=== PATIENT | female | born 1985 | race Caucasian/White ===

== ENCOUNTER 2018-11-22 09:41 | Outpatient (CLI) | payer OTHER ==
[~2018-11-22] VITALS: Ht 154.9 cm; Wt 61.7 kg
[~2018-11-22 09:41] MED LIST: AMOX250S6 PO; CALC-250 PO; Flexeril; MULT-383 PO; NAPR-243 PO; NITR100C3 PO; PLAQUENIL; SULF1TAB35 PO
[2018-11-22 09:45] VITALS: BP 111/66
== END 2018-11-22 10:55 | disposition home or self-care (01) ==
LOC: SDC 09:41
PROVIDERS: ATTEND Internal Medicine Hematology & Oncology
DX: C53.8 Malignant neoplasm of overlapping sites of cervix uteri (principal)
CPT/HCPCS: 36569; 76937

== ENCOUNTER 2018-11-26 19:31 | Emergency (ER) | payer OTHER ==
[~2018-11-26] VITALS: Ht 154.9 cm; Wt 63.0 kg
[2018-11-26] MEDS ORDERED: KETOROLAC 30 MG/ML VIAL IVP ONE (20:15)
--- NOTE | 2018-11-26 20:16 | ED Upper Extremity ---
General Chief Complaint: Upper Extremity Stated Complaint: PAIN FROM PICLINE Source: patient Exam Limitations: no limitations History of Present Illness Date Seen by Provider: Nov 26, 2018 Time Seen by Provider: 20:16 Initial Comments To ER with pain to the left arm, a full sensation to her neck and chest. This began Wednesday morning upon awakening. She also reports ringing in her ears. She denies fevers. She had a PICC line placed on 11/22/18 in preparation for chemotherapy for cervical cancer. She follows with Dr. jansen. She is scheduled to start chemotherapy this upcoming week. The PICC line has not yet been used. Onset: other Severity: moderate Pain/Injury Location: left arm Modifying Factors: Worse With Movement Allergies and Home Medications Allergies Coded Allergies: codeine (Verified Allergy, Unknown, 03/19/06) Home Medications Calcium Carbonate/Vitamin D3 1 Each Tablet, 1 EACH PO WEEKLY, (Reported) Cephalexin 500 Mg Capsule, 500 MG PO TID Prescribed by: RANDY RUIZ on 11/26/182048 Multivitamins W-Iron 1 Each Tab.chew, 1 EACH PO DAILY, (Reported) Sulfamethoxazole/Trimethoprim 1 Each Tablet, 1 EACH PO BID Prescribed by: MICKEY MUNIZ on 03/30/13 1439 [Flexeril] , 10 MG twice a day Prescribed by: MICKEY MUNIZ on 09/06/16 1630 Patient Home Medication List Home Medication List Reviewed: Yes Review of Systems Constitutional: see HPI; No chills EENTM: see HPI Respiratory: no symptoms reported Cardiovascular: no symptoms reported Genitourinary: no symptoms reported Musculoskeletal: see HPI Skin: see HPI Psychiatric/Neurological: No Symptoms Reported Past Puyqiyp-Cbxytl-Sauwzq Hx Patient Social History Type Used: Cigarettes Recent Foreign Travel: No Contact w/Someone Who Travel: No Recent Hopitalizations: Yes () Seasonal Allergies Seasonal Allergies: No Past Medical History Reproductive Disorders: No 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 0.2oz. [id number]; BMI Method:Stated General Appearance: WD/WN, no apparent distress HEENT: PERRL/EOMI, normal ENT inspection Neck: non-tender, full range of motion Respiratory: no respiratory distress, no accessory muscle use Back: other (there is ecchymosis and tenderness to palpation just proximal to the insertion site of the left upper extremity PICC line. There is no erythema of the upper extremity anywhere, including immediately around the insertion site. I suspect a hematoma in the soft tissues as the cause of her pain.) Shoulder: normal inspection, non-tender Elbow/Forearm: normal inspection, non-tender Wrist: Yes normal inspection, Yes non-tender Hand: normal inspection, non-tender Neurologic/Psychiatric: alert, normal mood/affect, oriented x 3 Skin: normal color, warm/dry Progress/Results/Core Measures Results/Orders My Orders Orders - RANDY RUIZ APRN Us Venous Upper Ext Lt (11/26/18 19:39) Ketorolac Injection (Toradol Injection) (11/26/18 20:15) Cbc With Automated Diff (11/26/18 20:15) Basic Metabolic Panel (11/26/18 20:15) Chest Pa/Lat (2 View) (11/26/18 20:20) Medications Given in ED Current Medications Medications Dose Ordered Sig/Kelly Route Start Time Stop Time Status Last Admin Dose Admin Ketorolac Tromethamine 15 mg ONCE ONCE IVP 11/26/18 20:15 11/26/18 20:16 DC 11/26/18 20:49 15 MG Vital Signs/I&O 11/26/18 19:35 Temp 97.9 Pulse 86 Resp 16 B/P (MAP) 98/72 (81) Pulse Ox 98 O2 Delivery Room Air Diagnostic Imaging Diagonstic Imaging: CT, Ultrasound Comments NAME: NICKOLAS LEDESMA [facility] REC#: [id number] PT STATUS: REG ER : 1985 PHYSICIAN: RANDY RUIZ APRN ADMIT DATE: 11/26/18/ER Draft Date of Exam:11/26/18 US VENOUS UPPER EXT LT PROCEDURE: US venous upper extremity, left. TECHNIQUE: Multiple realtime grayscale images were obtained of left upper extremity in various projections. Additional spectral analysis and color Doppler duplex images were also obtained. INDICATION: Venous clot. FINDINGS: There is superficial venous clot over about a 12 cm segment of the cephalic vein peripheral to an indwelling vascular catheter. There is also a segmental clot in the basilic vein. The jugular, subclavian, axillary and brachial veins are all patent. There is no evidence for deep vein thrombus. IMPRESSION: There is a superficial venous clot peripheral to the course of the PICC line involving the cephalic vein as well as some clot within the lower basilic vein. Deep venous system, however, is patent. Dictated on workstation # [id number] Dict: 11/26/182036 Trans: 11/26/182041 [facility] [id number] Interpreted by: LINO SALDIVAR Electronically signed by: Departure Impression Primary Impression: Superficial thrombophlebitis Qualified Codes: I80.8 - Phlebitis and thrombophlebitis of other sites Disposition: HOME, SELF-CARE Condition: Stable Departure-Patient Inst. Decision time for Depature: 20:19 Referrals: JER PAREDES DO (PCP/Family) Primary Care Physician Patient Instructions: PHLEBITIS-SUPERFICIAL Add. Discharge Instructions: 1. Warm compresses to the area 2. Take an NSAID such as aspirin naproxen or ibuprofen for pain control. Follow- up with Dr. Santos next week. All discharge instructions reviewed with patient and /or family. Voiced understanding. Scripts Cephalexin (Keflex) 500 Mg Capsule 500 MG PO TID, #21 CAP Prov: RANDY RUIZ APRN 11/26/18 RANDY RUIZ APRN Nov 26, 2018 20:16
--- NOTE | 2018-11-26 20:41 | Diagnostic Imaging Report ---
PROCEDURE: US venous upper extremity, left. TECHNIQUE: Multiple realtime grayscale images were obtained of left upper extremity in various projections. Additional spectral analysis and color Doppler duplex images were also obtained. INDICATION: Venous clot. FINDINGS: There is superficial venous clot over about a 12 cm segment of the cephalic vein peripheral to an indwelling vascular catheter. There is also a segmental clot in the basilic vein. The jugular, subclavian, axillary and brachial veins are all patent. There is no evidence for deep vein thrombus. IMPRESSION: There is a superficial venous clot peripheral to the course of the PICC line involving the cephalic vein as well as some clot within the lower basilic vein. Deep venous system, however, is patent. Dictated by: Dictated on workstation # [id number]
[2018-11-26] MEDS ORDERED: CEPH-507 PO (20:49)
--- NOTE | 2018-11-26 20:53 | Diagnostic Imaging Report ---
INDICATION: PICC line FINDINGS: Left PICC catheter tip is at the SVC. The lungs are clear. There is no failure, effusion or pneumothorax. Hilar and mediastinal contours normal. No infiltrate or mass apparent. No free air beneath the diaphragms. No bony abnormality. IMPRESSION: PICC line in good position. The study is otherwise normal. Dictated by: Dictated on workstation # [id number]
[2018-11-26 20:58] LABS: BASOPHILS % (AUTO) 0 % (0-10); EOSINOPHILS # (AUTO) 0.1 10^3/uL (0.0-0.3); EOSINOPHILS % (AUTO) 3 % (0-10); HEMATOCRIT 33 % (35-52); HEMOGLOBIN 11.2 G/DL (11.5-16.0); LYMPHOCYTES # (AUTO) 0.3 X 10^3 (1.0-4.0); LYMPHOCYTES % (AUTO) 7 % (12-44); MEAN CORPUSCULAR HEMOGLOBIN 30 PG (25-34); MEAN CORPUSCULAR HGB CONC 34 G/DL (32-36); MEAN CORPUSCULAR VOLUME 90 FL (80-99); MEAN PLATELET VOLUME 10.6 FL (7.4-10.4); MONOCYTES # (AUTO) 0.3 X 10^3 (0.0-1.0); MONOCYTES % (AUTO) 6 % (0-12); NEUTROPHILS # (AUTO) 3.8 X 10^3 (1.8-7.8); NEUTROPHILS % (AUTO) 85 % (42-75); PLATELET COUNT 143 10^3/uL (130-400); RED CELL DISTRIBUTION WIDTH 12.1 % (10.0-14.5); WHITE BLOOD COUNT 4.5 10^3/uL (4.3-11.0)
[2018-11-26 21:15] LABS: BUN/CREATININE RATIO 15; CALCIUM 9.2 MG/DL (8.5-10.1); CARBON DIOXIDE 26 MMOL/L (21-32); CHLORIDE 101 MMOL/L (98-107); CREATININE SERUM 0.68 MG/DL (0.60-1.30); GFR ESTIMATED > 60; GLUCOSE 95 MG/DL (70-105); POTASSIUM 3.7 MMOL/L (3.6-5.0); SODIUM 137 MMOL/L (135-145)
[2018-11-26 21:30] LABS: BAND NEUTROPHILS 2 %; EOSINOPHILS % (MANUAL) 3 %; LYMPHOCYTES % (MANUAL) 4 %; MONOCYTES % (MANUAL) 11 %; NEUTROPHILS % (MANUAL) 80 %; RBC MORPH NORMAL
[2018-11-26 21:38] VITALS: BP 98/70
[2018-11-26] MEDS ORDERED: CEPHALEXIN 250 MG (KEFLEX) CAP PO ONE (21:45)
--- OUTSIDE RECORDS SUMMARY | 2018-11-27 14:02 | XMS REPORT | Clinical Summary ---
Author Author [facility] Organization [facility] Address Unknown Phone Unavailable Care Team Providers Care Instrumentation And Control Technician Name Role Phone Demetrius Villalobos MD Unavailable Ja Villegas MD Unavailable Mike Barth DO PCP Kezia Hopkins MD Unavailable Unavailable Source Comments Some departments are not documenting in the electronic medical record. If you do not see the information that you expected, contact Release of Information in the Health Information Management department at [phone] for further assistance in locating additional records.[facility] Allergies Comments Active Allergy Reactions Severity Noted Date Codeine UNKNOWN 02/07/2013 Medications End Date Status Medication Sig Dispensed Refills Start Date Active hydroxychloroquine Take 300 mg 45 Tab 3 (PLAQUENIL) 200 mg daily (1.5 mg 3 tabletIndications: SLE tabs). (systemic lupus erythematosus) (HCC), Encounter for long-term (current) use of medications Active NAPROXEN SODIUM (ALEVE Take by 0 PO) mouth as Needed. Active ACETAMINOPHEN (TYLENOL Take by 0 PO) mouth as Needed. Active pilocarpine (SALAGEN) 5 Take 1 Tab by 90 Tab 1 mg tabletIndications: mouth three 4 Sjogrens syndrome (HCC), times daily Sicca (HCC) as needed. Active ergocalciferol (VITAMIN Take 1 Cap by 12 Cap 0 D-2) 50,000 unit mouth every 7 4 capsuleIndications: days. For 12 Vitamin D deficiency weeks. Active Problems Problem Noted Date Sicca 02/14/2014 SLE (systemic lupus erythematosus) 02/22/2013 Encounter for long-term (current) use of medications 02/22/2013 Sjogrens syndrome 02/22/2013 Polyarthralgia 02/22/2013 Fatigue 02/22/2013 Sicca syndrome 02/22/2013 Family History Medical History Relation Name Comments Heart defect Daughter Congential heart Block, 2:1 Block Cancer Maternal Grandfather Hypertension Paternal Grandmother Relation Name Status Comments Daughter Maternal Grandfather Paternal Grandmother Social History Date Tobacco Use Types Packs/Day Years Used Current Every Day Smoker Cigarettes 0.4 Smokeless Tobacco: Never Used Alcohol Use Drinks/Week oz/Week Comments No Sex Assigned at Date Recorded Not on file Industry Job Start Date Occupation Not on file Not on file Not on file Travel End Travel History Travel Start No recent travel history available. Last Filed Vital Signs Time Taken Vital Sign Reading 02/14/2014 4:10 PM CDT Blood Pressure 101/58 02/14/2014 4:10 PM CDT Pulse 68 02/14/2014 4:10 PM CDT Temperature 36.3 C (97.3 F) 02/14/2014 4:10 PM CDT Respiratory Rate 18 - Oxygen Saturation - - Inhaled Oxygen - Concentration 02/14/2014 4:10 PM CDT Weight 56.9 kg (125 lb 6.4 oz) 02/14/2014 4:10 PM CDT Height 157.3 cm (5' 1.93") 02/14/2014 4:10 PM CDT Body Mass Index 22.99 Plan of Treatment Health Maintenance Due Date Last Done Comments PHYSICAL (COMPREHENSIVE) 1991 EXAM HIV SCREENING 1999 DTAP/TDAP VACCINES ( - 2002 Tdap) CERVICAL CANCER SCREENING 2014 INFLUENZA VACCINE 04/27/2019 Results Not on filefrom Last 3 Months Insurance Payer Benefit Subscriber ID Type Phone Address Plan / Group [employer] xxxxxxxxxxxxxxx PPO OUT OF STATE Advance Directives Patient has advance care planning documents on file. For more information, please contact: [facility] [address] [place] [address]
--- OUTSIDE RECORDS SUMMARY | 2018-11-27 14:02 | XMS REPORT | Continuity of Care Document ---
Author Author [facility] Organization [facility] Address Unknown Phone Unavailable Care Team Providers Care Circulating Process Inspector Name Role Phone JER PAREDES DO PP Insurance Providers Payer Name Policy Number Subscriber Name Relationship [place] [id number] Louise Ledesma 01 Self / Same As Patient Advance Directives Directive Response Recorded Date Advance Directives N 03/30/13 11:27am Health Care Power of Driller Operator N 03/30/13 11:27am Organ Donor N 03/30/13 11:27am Problems No Known Problems or Medical conditions. Family History History Response Recorded Date/Time Hx Family Cancer N 02/20/11 2:55am Hx Family Cardiac Disorders N 02/20/11 2: 55am Hx Family Hypertension Y paternal grand mother, mother 02/20/11 2:55am Social History History Response Recorded Date/Time Alcohol Use Denies Use 03/30/13 11:27am Recreational Drug Use N 03/30/13 11:27am Sexually Transmitted Disease Y chlamydia, tx 02/1903/30/13 11:27am Allergies, Adverse Reactions, Alerts Allergen Type Severity Reaction Last Updated Codeine Allergy Unknown 03/19/06 Medications Medication Dose Units Route Sig Qty Days Trimethoprim/Sulfamethoxazole (Bactrim Ds Tablet) 1 Each PO BID 14 Calcium Carbonate/Vitamin D3 (Vitamin D3 5,000 Unit Tablet) 1 Each PO WEEKLY [Plaquenil] Multivitamins W-Iron (Chewable Multivitamin W-Iron) 1 Each PO DAILY Nitrofurantoin Macrocrystals (Macrobid) 100 Mg PO BID 5 Naproxen (Naprosyn) 1 Each PO BID PRN 20 Amoxicillin Trihydrate (Amoxicillin) 250 Mg PO qid Response Recorded Date/Time Status not known Unknown Results No Known Relevant Diagnostic Tests, Laboratory Data and/or Discharge Summary. Procedures Procedure Code Date REPAIR OB LAC RECT/ANUS 75.62 04/13/06 EPISIOTOMY 73.6 05/03/09 REPAIR OB LACERATION NEC 75.69 02/20/11 Encounters Encounter Location Date/Time Departed Emergency Room [facility] 01/07 11:17am Discharged Inpatient [facility] 3:29am
--- OUTSIDE RECORDS SUMMARY | 2018-11-27 14:02 | XMS REPORT | Continuity of Care Document ---
Author Author [facility] Address Unknown Phone Unavailable Allergies Active Description Code Type Severity Reaction Onset Reported/Identified Relationship to Patient Clinical Status Yes codeine [id number] Drug Allergy Unknown N/A 03/19/2006 Yes codeine Drug Allergy N/A N/A 10/03/2010 Medications There is no data. Problems Date Dx Coded Attending Type Code Diagnosis Diagnosed By 10/03/2010 PRIMO CAM APRN 461.9 SINUSITIS ACUTE 10/03/2010 MEGHAN CATHERINE APRN 461.9 SINUSITIS ACUTE 02/22/2011 Ot 664.81 OB PERINEAL TRAU NEC-DEL 02/22/2011 Ot V06.4 VAC-MEASLE- MUMPS-RUBELLA 02/22/2011 Ot V07.2 PROPHYLACT IMMUNOTHERAPY 02/22/2011 Ot V27.0 DELIVER- SINGLE LIVEBORN 07/17/2012 Ot 659.73 ABN FET HT RT/RHYTHM,ANTEPARTUM COND OR 03/30/2013 MICKEY MUNIZ MD Ot 599.0 URIN TRACT INFECTION NOS 03/30/2013 MICKEY MUNIZ MD Ot 780.4 DIZZINESS AND GIDDINESS 09/08/2014 PRIMO CAM APRN 462 PHARYNGITIS ACUTE 09/08/2014 MEGHAN CATHERINE APRN 462 PHARYNGITIS ACUTE 12/19/2014 MEGHAN CATHERINE APRN 686.8 OTHER SPECIFIED LOCAL INFECTIONS OF SKIN AND SUBCUTANEOUS TISSUE 07/14/2016 Ot V89.04 SUSPECTED PROBLEM WITH GROWTH NOT 09/06/2016 Ot 659.73 ABN FET HT RT/RHYTHM,ANTEPARTUM COND OR 09/06/2016 MICKEY MUINZ MD Ot F17.210 NICOTINE DEPENDENCE, CIGARETTES, UNCOMPL 09/06/2016 MICKEY MUNIZ MD Ot H92.02 OTALGIA, LEFT EAR 09/06/2016 MICKEY MUNIZ MD Ot J02.9 ACUTE PHARYNGITIS, UNSPECIFIED 09/06/2016 MICKEY MUNIZ MD Ot M54.2 CERVICALGIA 09/06/2016 MICKEY MUNIZ MD Ot M62.838 OTHER MUSCLE SPASM 09/06/2016 Ot 659.73 ABN FET HT RT/RHYTHM,ANTEPARTUM COND OR 09/08/2016 MICKEY MUNIZ MD Ot F17.210 NICOTINE DEPENDENCE, CIGARETTES, UNCOMPL 09/08/2016 MICKEY MUNIZ MD Ot H92.02 OTALGIA, LEFT EAR 09/08/2016 MICKEY MUNIZ MD Ot J02.9 ACUTE PHARYNGITIS, UNSPECIFIED 09/08/2016 MICKEY MUNIZ MD Ot M54.2 CERVICALGIA 09/08/2016 MICKEY MUNIZ MD Ot M62.838 OTHER MUSCLE SPASM 10/20/2018 Ot 659.73 ABN FET HT RT/RHYTHM,ANTEPARTUM COND OR 10/20/2018 Ot 659.73 ABN FET HT RT/RHYTHM,ANTEPARTUM COND OR 11/11/2018 AC PIMENTEL MD Ot C53.9 MALIGNANT NEOPLASM OF CERVIX UTERI, UNSP 11/11/2018 AC PIMENTEL MD Ot F17.210 NICOTINE DEPENDENCE, CIGARETTES, UNCOMPL 11/11/2018 AC PIMENTEL MD Ot M32.9 SYSTEMIC LUPUS ERYTHEMATOSUS, UNSPECIFIE 11/11/2018 AC PIMENTEL MD Ot Z80.3 FAMILY HISTORY OF MALIGNANT NEOPLASM OF 11/14/2018 AC PIMENTEL MD Ot C53.9 MALIGNANT NEOPLASM OF CERVIX UTERI, UNSP 11/14/2018 AC PIMENTEL MD Ot F17.210 NICOTINE DEPENDENCE, CIGARETTES, UNCOMPL 11/14/2018 AC PIMENTEL MD Ot M32.9 SYSTEMIC LUPUS ERYTHEMATOSUS, UNSPECIFIE 11/14/2018 AC PIMENTEL MD Ot Z80.3 FAMILY HISTORY OF MALIGNANT NEOPLASM OF 11/14/2018 AC PIMENTEL MD Ot C53.9 MALIGNANT NEOPLASM OF CERVIX UTERI, UNSP 11/14/2018 AC PIMENTEL MD Ot F17.210 NICOTINE DEPENDENCE, CIGARETTES, UNCOMPL 11/14/2018 AC PIMENTEL MD Ot M32.9 SYSTEMIC LUPUS ERYTHEMATOSUS, UNSPECIFIE 11/14/2018 AC PIMENTEL MD Ot Z80.3 FAMILY HISTORY OF MALIGNANT NEOPLASM OF 11/23/2018 AC PIMENTEL MD Ot C53.8 MALIGNANT NEOPLASM OF OVERLAPPING SITES Procedures Code Description Performed By Performed On 75.69 02/20/2011 [id number] STREP A (IN-HOUSE) 09/08/2014 Results Test Result Range Complete blood count (CBC) with automated white blood cell (WBC) differential - 09/06/16 14:57 Blood leukocytes automated count (number/volume) 9.3 10*3/uL 4.3-11.0 Blood erythrocytes automated count (number/volume) 4.04 10*6/uL 4.35-5.85 Venous blood hemoglobin measurement (mass/volume) 12.6 g/dL 11.5-16.0 Blood hematocrit (volume fraction) 37 % 35-52 Automated erythrocyte mean corpuscular volume 93 [foz_us] 80-99 Automated erythrocyte mean corpuscular hemoglobin (mass per erythrocyte) 31 pg 25-34 Automated erythrocyte mean corpuscular hemoglobin concentration measurement ( mass/volume) 34 g/dL 32-36 Automated erythrocyte distribution width ratio 11.7 % 10.0-14.5 Automated blood platelet count (count/volume) 204 10*3/uL 130-400 Automated blood platelet mean volume measurement 10.9 [foz_us] 7.4-10.4 Automated blood neutrophils/100 leukocytes 73 % 42-75 Automated blood lymphocytes/100 leukocytes 16 % 12-44 Blood monocytes/100 leukocytes 9 % 0-12 Automated blood eosinophils/100 leukocytes 2 % 0-10 Automated blood basophils/100 leukocytes 0 % 0-10 Blood neutrophils automated count (number/volume) 6.7 10*3 1.8-7.8 Blood lymphocytes automated count (number/volume) 1.5 10*3 1.0-4.0 Blood monocytes automated count (number/volume) 0.8 10*3 0.0-1.0 Automated eosinophil count 0.2 10*3/uL 0.0-0.3 Automated blood basophil count (count/volume) 0.0 10*3/uL 0.0-0.1 Comprehensive metabolic panel - 09/06/16 14:57 Serum or plasma sodium measurement (moles/volume) 138 mmol/L 135-145 Serum or plasma potassium measurement (moles/volume) 3.5 mmol/L 3.6-5.0 Serum or plasma chloride measurement (moles/volume) 108 mmol/L 98-107 Carbon dioxide 20 mmol/L 21-32 Serum or plasma anion gap determination (moles/volume) 10 mmol/L 5-14 Serum or plasma urea nitrogen measurement (mass/volume) 9 mg/dL 7-18 Serum or plasma creatinine measurement (mass/volume) 0.71 mg/dL 0.60-1.30 Serum or plasma urea nitrogen/creatinine mass ratio 13 NRG Serum or plasma creatinine measurement with calculation of estimated glomerular filtration rate > NRG Serum or plasma glucose measurement (mass/volume) 98 mg/dL 70-105 Serum or plasma calcium measurement (mass/volume) 8.6 mg/dL 8.5-10.1 Serum or plasma total bilirubin measurement (mass/volume) 0.6 mg/dL 0.1-1.0 Serum or plasma alkaline phosphatase measurement (enzymatic activity/volume) 54 U/L 40-136 Serum or plasma aspartate aminotransferase measurement (enzymatic activity/ volume) 17 U/L 5-34 Serum or plasma alanine aminotransferase measurement (enzymatic activity/volume ) 14 U/L 0-55 Serum or plasma protein measurement (mass/volume) 8.0 g/dL 6.4-8.2 Serum or plasma albumin measurement (mass/volume) 4.0 g/dL 3.2-4.5 Encounters ACCT No. Visit Date/Time Discharge Status Pt. Type Provider Facility Loc./Unit Complaint [id number] 12/19/2014 11:11:00 12/19/2014 23:59:59 CLS Outpatient MEGHAN CATHERINE APRN [id number] 09/08/2014 10:15:00 09/08/2014 23:59:59 CLS Outpatient PRIMO CAM APRN [id number] 11/22/2018 09:41:00 11/22/2018 10:55:00 DIS Outpatient AC PIMENTEL MD [facility] CERVICAL CANCER [id number] 09/06/2016 14:33:00 09/06/2016 16:36:00 DIS Emergency MICKEY MUNIZ MD [facility] ER NECK PAIN/HEAD PAIN/SORE THROAT [id number] 03/30/2013 11:17:00 03/30/2013 14:54:00 DIS Emergency MICKEY MUNIZ MD [facility] ER DIZZINESS [id number] 11/25/2018 08:56:00 ACT Outpatient AC PIMENTEL MD [facility] ONC [id number] 07/13/2012 00:00:00 Document Registration [id number] 07/11/2012 13:15:00 Document Registration [id number] 05/12/2012 14:45:00 Document Registration [id number] 02/20/2011 03:29:00 Document Registration
--- OUTSIDE RECORDS SUMMARY | 2018-11-27 14:02 | XMS REPORT ---
Author Author ROMY LEARY Organization [facility] Address [address] [place] [address] Care Team Providers Care Financial Systems Director Name Role Phone ROMY LEARY Unavailable PROBLEMS Type Condition ICD9-CM Code [id number] Code Onset Dates Condition Status SNOMED Code Problem Acute pharyngitis 462 Active [id number] Problem Other specified local infections of skin and subcutaneous tissue 686.8 Active [id number] ALLERGIES Substance Reaction Event Type Date Status N.K.D.A. Unknown Non Drug Allergy Sep, Unknown SOCIAL HISTORY No smoking Hx information available PLAN OF CARE Activity Details Follow Up prn Reason: VITAL SIGNS Height 62 in 2016-10-11 Weight 116.4 lbs 2016-10-11 Temperature 97.5 degrees Fahrenheit 2016-10-11 Heart Rate 76 bpm 2016-10-11 Respiratory Rate 18 2016-10-11 BMI 21.29 kg/m2 2016-10-11 Blood pressure systolic 110 mmHg 2016-10-11 Blood pressure diastolic 66 mmHg 2016-10-11 MEDICATIONS Medication Instructions Dosage Frequency Start Date End Date Duration Status Augmentin 875-125 MG Orally every 12 hrs 1 tablet 12h Sep,Sep 10 day(s) Active RESULTS No Results PROCEDURES Procedure Date Ordered Related Diagnosis Body Site EAR LAVAGE 2016-10-11 N/A EAR IRRIGATION Oct 11, 2016 THER/PROPH/DIAG INJ, SC/IM Oct 11, 2016 DEPO MEDROL 40 MG/ML Oct 11, 2016 Office Visit, Est Pt., Level 3 Oct 11, 2016 DEXAMETHASONE 4MG/ML (PER 1 MG) Oct 11, 2016 IMMUNIZATIONS Vaccine Route Administration Date Status DEXAMETHASONE 4MG/ML (PER 1 MG) IM Intramuscular Oct 11, 2016 Administered DEPO MEDROL 40 MG/ML IM Intramuscular Oct 11, 2016 Administered
== END 2018-11-26 21:37 | disposition home or self-care (01) ==
LOC: EDUNIT# 19:31 → ER 19:33
DX: I80.8 Phlebitis and thrombophlebitis of other sites (principal); C53.9 Malignant neoplasm of cervix uteri, unspecified; Z88.5 Allergy status to narcotic agent; Z86.19 Personal history of other infectious and parasitic diseases; Z98.51 Tubal ligation status
CPT/HCPCS: 36415; 71046; 80048; 85007; 85027

== ENCOUNTER 2018-12-16 08:38 | Outpatient (RCR) | payer OTHER ==
[2018-11-02 16:08] LABS: CREATININE SERUM 0.87 MG/DL (0.60-1.30)
[2018-11-14 09:57] LABS: BASOPHILS % (AUTO) 0 % (0-10); EOSINOPHILS # (AUTO) 0.2 10^3/uL (0.0-0.3); EOSINOPHILS % (AUTO) 2 % (0-10); HEMATOCRIT 35 % (35-52); HEMOGLOBIN 11.7 G/DL (11.5-16.0); LYMPHOCYTES # (AUTO) 0.8 X 10^3 (1.0-4.0); LYMPHOCYTES % (AUTO) 8 % (12-44); MEAN CORPUSCULAR HEMOGLOBIN 30 PG (25-34); MEAN CORPUSCULAR HGB CONC 33 G/DL (32-36); MEAN CORPUSCULAR VOLUME 90 FL (80-99); MEAN PLATELET VOLUME 10.5 FL (7.4-10.4); MONOCYTES # (AUTO) 0.8 X 10^3 (0.0-1.0); MONOCYTES % (AUTO) 7 % (0-12); NEUTROPHILS # (AUTO) 8.7 X 10^3 (1.8-7.8); NEUTROPHILS % (AUTO) 83 % (42-75); PLATELET COUNT 261 10^3/uL (130-400); WHITE BLOOD COUNT 10.5 10^3/uL (4.3-11.0)
[2018-11-14 10:19] LABS: ALANINE AMINOTRANSFERASE 15 U/L (0-55); ALBUMIN 3.8 GM/DL (3.2-4.5); ALKALINE PHOSPHATASE 73 U/L (40-136); BILIRUBIN,TOTAL 0.6 MG/DL (0.1-1.0); BUN/CREATININE RATIO 11; CALCIUM 8.9 MG/DL (8.5-10.1); CARBON DIOXIDE 24 MMOL/L (21-32); CHLORIDE 104 MMOL/L (98-107); CREATININE SERUM 0.79 MG/DL (0.60-1.30); GFR ESTIMATED > 60; GLUCOSE 88 MG/DL (70-105); POTASSIUM 3.6 MMOL/L (3.6-5.0); SODIUM 136 MMOL/L (135-145); TOTAL PROTEIN 8.2 GM/DL (6.4-8.2)
[2018-11-21 09:26] LABS: BASOPHILS % (AUTO) 0 % (0-10); EOSINOPHILS # (AUTO) 0.1 10^3/uL (0.0-0.3); EOSINOPHILS % (AUTO) 1 % (0-10); HEMATOCRIT 35 % (35-52); HEMOGLOBIN 11.8 G/DL (11.5-16.0); LYMPHOCYTES # (AUTO) 0.3 X 10^3 (1.0-4.0); LYMPHOCYTES % (AUTO) 3 % (12-44); MEAN CORPUSCULAR HEMOGLOBIN 30 PG (25-34); MEAN CORPUSCULAR HGB CONC 34 G/DL (32-36); MEAN CORPUSCULAR VOLUME 89 FL (80-99); MEAN PLATELET VOLUME 10.7 FL (7.4-10.4); MONOCYTES # (AUTO) 0.8 X 10^3 (0.0-1.0); MONOCYTES % (AUTO) 8 % (0-12); NEUTROPHILS # (AUTO) 8.6 X 10^3 (1.8-7.8); NEUTROPHILS % (AUTO) 88 % (42-75); PLATELET COUNT 239 10^3/uL (130-400); RED CELL DISTRIBUTION WIDTH 11.8 % (10.0-14.5); WHITE BLOOD COUNT 9.8 10^3/uL (4.3-11.0)
[2018-11-21 09:41] LABS: BUN/CREATININE RATIO 10; CALCIUM 9.1 MG/DL (8.5-10.1); CARBON DIOXIDE 25 MMOL/L (21-32); CHLORIDE 96 MMOL/L (98-107); CREATININE SERUM 0.72 MG/DL (0.60-1.30); GFR ESTIMATED > 60; GLUCOSE 94 MG/DL (70-105); POTASSIUM 3.3 MMOL/L (3.6-5.0); SODIUM 135 MMOL/L (135-145)
[2018-11-28 09:22] LABS: BASOPHILS % (AUTO) 0 % (0-10); EOSINOPHILS # (AUTO) 0.2 10^3/uL (0.0-0.3); EOSINOPHILS % (AUTO) 4 % (0-10); HEMATOCRIT 34 % (35-52); HEMOGLOBIN 10.9 G/DL (11.5-16.0); LYMPHOCYTES # (AUTO) 0.2 X 10^3 (1.0-4.0); LYMPHOCYTES % (AUTO) 6 % (12-44); MEAN CORPUSCULAR HEMOGLOBIN 30 PG (25-34); MEAN CORPUSCULAR HGB CONC 32 G/DL (32-36); MEAN CORPUSCULAR VOLUME 91 FL (80-99); MEAN PLATELET VOLUME 10.6 FL (7.4-10.4); MONOCYTES # (AUTO) 0.3 X 10^3 (0.0-1.0); MONOCYTES % (AUTO) 9 % (0-12); NEUTROPHILS # (AUTO) 3.1 X 10^3 (1.8-7.8); NEUTROPHILS % (AUTO) 81 % (42-75); PLATELET COUNT 124 10^3/uL (130-400); RED CELL DISTRIBUTION WIDTH 12.1 % (10.0-14.5); WHITE BLOOD COUNT 3.8 10^3/uL (4.3-11.0)
[2018-11-28 09:40] LABS: ALANINE AMINOTRANSFERASE 40 U/L (0-55); ALBUMIN 3.5 GM/DL (3.2-4.5); ALKALINE PHOSPHATASE 88 U/L (40-136); BILIRUBIN,TOTAL 0.4 MG/DL (0.1-1.0); BUN/CREATININE RATIO 12; CALCIUM 8.9 MG/DL (8.5-10.1); CARBON DIOXIDE 24 MMOL/L (21-32); CHLORIDE 104 MMOL/L (98-107); CREATININE SERUM 0.68 MG/DL (0.60-1.30); GFR ESTIMATED > 60; GLUCOSE 86 MG/DL (70-105); MAGNESIUM 2.2 MG/DL (1.8-2.4); POTASSIUM 3.9 MMOL/L (3.6-5.0); SODIUM 137 MMOL/L (135-145); TOTAL PROTEIN 7.4 GM/DL (6.4-8.2)
[2018-12-05 09:27] LABS: BASOPHILS % (AUTO) 0 % (0-10); EOSINOPHILS # (AUTO) 0.2 10^3/uL (0.0-0.3); EOSINOPHILS % (AUTO) 5 % (0-10); HEMATOCRIT 31 % (35-52); HEMOGLOBIN 10.5 G/DL (11.5-16.0); LYMPHOCYTES # (AUTO) 0.2 X 10^3 (1.0-4.0); LYMPHOCYTES % (AUTO) 5 % (12-44); MEAN CORPUSCULAR HEMOGLOBIN 30 PG (25-34); MEAN CORPUSCULAR HGB CONC 33 G/DL (32-36); MEAN CORPUSCULAR VOLUME 91 FL (80-99); MEAN PLATELET VOLUME 10.6 FL (7.4-10.4); MONOCYTES # (AUTO) 0.2 X 10^3 (0.0-1.0); MONOCYTES % (AUTO) 6 % (0-12); NEUTROPHILS # (AUTO) 3.2 X 10^3 (1.8-7.8); NEUTROPHILS % (AUTO) 84 % (42-75); PLATELET COUNT 129 10^3/uL (130-400); RED CELL DISTRIBUTION WIDTH 12.9 % (10.0-14.5); WHITE BLOOD COUNT 3.8 10^3/uL (4.3-11.0)
[2018-12-05 09:47] LABS: BUN/CREATININE RATIO 14; CALCIUM 8.9 MG/DL (8.5-10.1); CARBON DIOXIDE 22 MMOL/L (21-32); CHLORIDE 105 MMOL/L (98-107); CREATININE SERUM 0.69 MG/DL (0.60-1.30); GFR ESTIMATED > 60; GLUCOSE 117 MG/DL (70-105); MAGNESIUM 1.8 MG/DL (1.8-2.4); POTASSIUM 3.3 MMOL/L (3.6-5.0); SODIUM 140 MMOL/L (135-145)
[2018-12-12 09:40] LABS: BASOPHILS % (AUTO) 0 % (0-10); EOSINOPHILS # (AUTO) 0.1 10^3/uL (0.0-0.3); EOSINOPHILS % (AUTO) 2 % (0-10); HEMATOCRIT 30 % (35-52); HEMOGLOBIN 10.1 G/DL (11.5-16.0); LYMPHOCYTES # (AUTO) 0.2 X 10^3 (1.0-4.0); LYMPHOCYTES % (AUTO) 5 % (12-44); MEAN CORPUSCULAR HEMOGLOBIN 30 PG (25-34); MEAN CORPUSCULAR HGB CONC 33 G/DL (32-36); MEAN CORPUSCULAR VOLUME 91 FL (80-99); MEAN PLATELET VOLUME 10.7 FL (7.4-10.4); MONOCYTES # (AUTO) 0.3 X 10^3 (0.0-1.0); MONOCYTES % (AUTO) 10 % (0-12); NEUTROPHILS # (AUTO) 2.6 X 10^3 (1.8-7.8); NEUTROPHILS % (AUTO) 83 % (42-75); PLATELET COUNT 95 10^3/uL (130-400); RED CELL DISTRIBUTION WIDTH 14.4 % (10.0-14.5); WHITE BLOOD COUNT 3.1 10^3/uL (4.3-11.0)
[2018-12-12 09:40] LABS: BILIRUBIN,URINE NEGATIVE (NEGATIVE); CLARITY,URINE CLEAR; COLOR,URINE YELLOW; GLUCOSE, URINE (UA) NEGATIVE (NEGATIVE); KETONES,URINE NEGATIVE (NEGATIVE); LEUKOCYTE ESTERASE ,URINE 3+ (NEGATIVE); NITRITE,URINE NEGATIVE (NEGATIVE); PH,URINE 5 (5-9); PROTEIN,URINE 3+ (NEGATIVE); UROBILINOGEN,URINE NORMAL (NORMAL)
[2018-12-12 09:49] LABS: BACTERIA,URINE FEW /HPF; WBC,URINE >100 /HPF
[2018-12-12 09:59] LABS: BUN/CREATININE RATIO 14; CALCIUM 9.4 MG/DL (8.5-10.1); CARBON DIOXIDE 23 MMOL/L (21-32); CHLORIDE 103 MMOL/L (98-107); CREATININE SERUM 0.69 MG/DL (0.60-1.30); GFR ESTIMATED > 60; GLUCOSE 98 MG/DL (70-105); MAGNESIUM 2.4 MG/DL (1.8-2.4); POTASSIUM 3.7 MMOL/L (3.6-5.0); SODIUM 137 MMOL/L (135-145)
[~2018-12-16] VITALS: Ht 154.9 cm; Wt 61.7 kg
[~2018-12-16 08:38] MED LIST changes: +CEPH-507 PO; +CISPLATIN IV SCH; +FOSAPREPITANT DIMEGLUMINE 150 MG in NS (IVPB) CANCER CENTER ONLY 150 ML IV SCH; +MAGNESIUM SULFATE IV SCH; +MANNITOL IV SCH; +NS IV 1000 ML (CANCER CTR) IV SCH; +PALONOSETRON HCL 0.25 MG, DEXAMETHASONE INJECTION 10 MG in NS (IVPB) CANCER CENTER 50 ML IV SCH; +[UNRECOGNIZED DRUG - OTHER] IV SCH
== END 2019-01-24 | disposition home or self-care (01) ==
LOC: ONC 08:38
PROVIDERS: ATTEND Internal Medicine Hematology & Oncology
DX: Z51.0 Encounter for antineoplastic radiation therapy (principal); Z51.11 Encounter for antineoplastic chemotherapy; C53.0 Malignant neoplasm of endocervix; N39.0 Urinary tract infection, site not specified; M32.9 Systemic lupus erythematosus, unspecified; F17.210 Nicotine dependence, cigarettes, uncomplicated; Z80.3 Family history of malignant neoplasm of breast; Z79.899 Other long term (current) drug therapy
CPT/HCPCS: 36415; 36591; 77290; 77300; 77301; 77334; 77336; 77338; 77386; 77470; 80048; 80053; 81000; 82565; 83735; 84520; 85025; 87088; 96367; 96375; 96413; 99205; 99213; 99214

== ENCOUNTER → 2019-08-29 | Outpatient (CLI) | payer OTHER ==
[~2019-08-29] MED LIST changes: -CISPLATIN IV SCH; -FOSAPREPITANT DIMEGLUMINE 150 MG in NS (IVPB) CANCER CENTER ONLY 150 ML IV SCH; -MAGNESIUM SULFATE IV SCH; -MANNITOL IV SCH; +METR-145 PO; -NS IV 1000 ML (CANCER CTR) IV SCH; -PALONOSETRON HCL 0.25 MG, DEXAMETHASONE INJECTION 10 MG in NS (IVPB) CANCER CENTER 50 ML IV SCH; -[UNRECOGNIZED DRUG - OTHER] IV SCH
--- NOTE | 2019-08-29 17:31 | Diagnostic Imaging Report ---
PROCEDURE: CT abdomen and pelvis without contrast. TECHNIQUE: Multiple contiguous axial images were obtained through the abdomen and pelvis without the use of intravenous contrast. Auto Exposure Controls were utilized during the CT exam to meet ALARA standards for radiation dose reduction. INDICATION: Right lower quadrant pain radiating to the groin. Patient has history of cervical carcinoma with radiation therapy. COMPARISON: No prior studies are available for comparison. FINDINGS: Lung bases are clear. Liver and gallbladder are unremarkable. Pancreas and spleen are unremarkable. No adrenal mass is detected. Tiny density in the right kidney lower pole is noted suggestive of a nonobstructing calculus. No definite hydronephrosis is seen. No definite ureteral calculi are detected. Aorta is non-aneurysmal. Bowel loops are normal caliber. No obstruction is seen. No definite inflammatory changes are identified. Bladder is decompressed. IMPRESSION: 1. Tiny nonobstructing right renal calculus. No definite ureteral calculi or hydronephrosis is seen. 2. No acute feature in the abdomen or pelvis is identified. Dictated by: Dictated on workstation # [id number]
== END ==
LOC: RAD 16:41
PROVIDERS: ATTEND Family Medicine
DX: R10.31 Right lower quadrant pain (principal); Z85.41 Personal history of malignant neoplasm of cervix uteri
CPT/HCPCS: 74176

== ENCOUNTER 2019-08-31 16:17 | Emergency (ER) | payer OTHER ==
[~2019-08-31] VITALS: Ht 154 cm; Wt 134.0 kg
[~2019-08-31 16:17] MED LIST changes: -METR-145 PO
[2019-08-31] MEDS ORDERED: LACTATED RINGERS 1,000 ML IV ONE (16:50)
[2019-08-31] MEDS ORDERED: KETOROLAC 30 MG/ML VIAL IVP STA (16:50)
[2019-08-31 17:08] LABS: BASOPHILS % (AUTO) 0 % (0-10); EOSINOPHILS # (AUTO) 0.1 10^3/uL (0.0-0.3); EOSINOPHILS % (AUTO) 2 % (0-10); HEMATOCRIT 38 % (35-52); HEMOGLOBIN 12.9 G/DL (11.5-16.0); LYMPHOCYTES # (AUTO) 0.7 X 10^3 (1.0-4.0); LYMPHOCYTES % (AUTO) 15 % (12-44); MEAN CORPUSCULAR HEMOGLOBIN 32 PG (25-34); MEAN CORPUSCULAR HGB CONC 34 G/DL (32-36); MEAN CORPUSCULAR VOLUME 94 FL (80-99); MEAN PLATELET VOLUME 10.1 FL (7.4-10.4); MONOCYTES # (AUTO) 0.5 X 10^3 (0.0-1.0); MONOCYTES % (AUTO) 9 % (0-12); NEUTROPHILS # (AUTO) 3.6 X 10^3 (1.8-7.8); NEUTROPHILS % (AUTO) 73 % (42-75); PLATELET COUNT 189 10^3/uL (130-400); RED CELL DISTRIBUTION WIDTH 12.7 % (10.0-14.5); WHITE BLOOD COUNT 4.9 10^3/uL (4.3-11.0)
[2019-08-31 17:09] LABS: BILIRUBIN,URINE NEGATIVE (NEGATIVE); CLARITY,URINE CLEAR; COLOR,URINE YELLOW; GLUCOSE, URINE (UA) NEGATIVE (NEGATIVE); KETONES,URINE NEGATIVE (NEGATIVE); LEUKOCYTE ESTERASE ,URINE TRACE (NEGATIVE); NITRITE,URINE NEGATIVE (NEGATIVE); PH,URINE 5.5 (5-9); PROTEIN,URINE NEGATIVE (NEGATIVE)
[2019-08-31 17:25] LABS: ALANINE AMINOTRANSFERASE 27 U/L (0-55); ALBUMIN 4.9 GM/DL (3.2-4.5); ALKALINE PHOSPHATASE 75 U/L (40-136); BILIRUBIN,TOTAL 0.5 MG/DL (0.1-1.0); BUN/CREATININE RATIO 11; CALCIUM 10.2 MG/DL (8.5-10.1); CARBON DIOXIDE 26 MMOL/L (21-32); CHLORIDE 102 MMOL/L (98-107); CREATININE SERUM 0.76 MG/DL (0.60-1.30); GFR ESTIMATED > 60; GLUCOSE 90 MG/DL (70-105); POTASSIUM 3.7 MMOL/L (3.6-5.0); SODIUM 139 MMOL/L (135-145); TOTAL PROTEIN 9.6 GM/DL (6.4-8.2)
--- NOTE | 2019-08-31 17:31 | ED Abdominal Pain ---
General Chief Complaint: Abdominal/GI Problems Stated Complaint: R SIDE ABD PAIN Nursing Triage Note: pt presents to ed with complaints of r sided abdominal pain since wednesday. pt reports she was seen by her dr and had an out pt ct scan which revealed a kidney stone but reports it was "small". Pt reports she was prescribed an antibiotic and levsin but has had no relief. Sepsis Screen: No Definite Risk Source of Information: Patient Exam Limitations: No Limitations History of Present Illness Date Seen by Provider: Aug 31, 2019 Time Seen by Provider: 16:42 Initial Comments Here with right lower quadrant abdominal pain since Wednesday. Patient was seen by her doctor and had a CT scan done 2 days ago that revealed a small stone within the right kidney. This was nonobstructing and does not seem to be the problem. No other acute findings noted. Patient does have history of cervical cancer and did have radiation treatments multiple times. This was all in that area. Denies is dysuria or diarrhea. No blood in her urine. Did try Tylenol as morning and that didn't help. She is unsure what is going on. Timing/Duration: 3-4 Days, Changing Over Time, Other (waxing and waning) Severity/Quality: Moderate, Cramping Location: RLQ Radiation: No Radiation Activities at Onset: None Modifying Factors: Worsens With Movement; Improves With Resting Associated Symptoms: No Chest Pain, No Fever/Chills, No Nausea/Vomiting, No Shortness of Air, No Weakness Allergies and Home Medications Allergies Coded Allergies: codeine (Verified Allergy, Unknown, 03/19/06) Home Medications Calcium Carbonate/Vitamin D3 1 Each Tablet, 1 EACH PO WEEKLY, (Reported) Cephalexin 500 Mg Capsule, 500 MG PO TID Prescribed by: RANDY RUIZ on 11/26/182048 Multivitamins W-Iron 1 Each Tab.chew, 1 EACH PO DAILY, (Reported) Sulfamethoxazole/Trimethoprim 1 Each Tablet, 1 EACH PO BID Prescribed by: MICKEY MUNIZ on 03/30/13 143 [Flexeril] , 10 MG twice a day Prescribed by: MICKEY MUNIZ on 09/06/16 1630 Patient Home Medication List Home Medication List Reviewed: Yes Review of Systems Review of Systems Constitutional: see HPI; No chills, No fever EENTM: No Symptoms Reported Respiratory: No Symptoms Reported Cardiovascular: No Symptoms Reported Gastrointestinal: See HPI Genitourinary: See HPI; Denies Discharge, Denies Flank Pain Musculoskeletal: no symptoms reported Skin: no symptoms reported Past Fjqeerm-Bqcmum-Oavabg Hx Past Med/Social Hx: Reviewed Nursing Past Med/Soc Hx Patient Social History Alcohol Use: Denies Use Recreational Drug Use: No Smoking Status: Current Everyday Smoker Type Used: Cigarettes Recent Foreign Travel: No Contact w/Someone Who Travel: No Recent Infectious Disease Expo: No Recent Hopitalizations: Yes () Seasonal Allergies Seasonal Allergies: No Past Medical History Surgeries: Yes ( X1, ) Tubal Ligation Respiratory: No Cardiac: No Neurological: No Reproductive Disorders: 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 0oz. 63.401975tz; 56.00 BMI Method:Stated General Appearance: WD/WN, no apparent distress HEENT: PERRL/EOMI, pharynx normal Neck: full range of motion, supple Respiratory: lungs clear, normal breath sounds Cardiovascular: regular rate, rhythm, no murmur Gastrointestinal: soft; No guarding, No rebound; tenderness (right lower quadrant) Extremities: non-tender, normal inspection Back: normal inspection, no CVA tenderness, no vertebral tenderness Neurologic/Psychiatric: alert, oriented x 3 Skin: normal color, warm/dry Progress/Results/Core Measures Results/Orders Lab Results Laboratory Tests Test 08/31/19 16:51 Range/Units White Blood Count 4.9 4.3-11.0 10^3/uL Red Blood Count 4.08 L 4.35-5.85 10^6/uL Hemoglobin 12.9 11.5-16.0 G/DL Hematocrit 38 35-52 % Mean Corpuscular Volume 94 80-99 FL Mean Corpuscular Hemoglobin 32 25-34 PG Mean Corpuscular Hemoglobin Concent 34 32-36 G/DL Red Cell Distribution Width 12.7 10.0-14.5 % Platelet Count 189 130-400 10^3/uL Mean Platelet Volume 10.1 7.4-10.4 FL Neutrophils (%) (Auto) 73 42-75 % Lymphocytes (%) (Auto) 15 12-44 % Monocytes (%) (Auto) 9 0-12 % Eosinophils (%) (Auto) 2 0-10 % Basophils (%) (Auto) 0 0-10 % Neutrophils # (Auto) 3.6 1.8-7.8 X 10^3 Lymphocytes # (Auto) 0.7 L 1.0-4.0 X 10^3 Monocytes # (Auto) 0.5 0.0-1.0 X 10^3 Eosinophils # (Auto) 0.1 0.0-0.3 10^3/uL Basophils # (Auto) 0.0 0.0-0.1 10^3/uL Urine Color YELLOW Urine Clarity CLEAR Urine pH 5.5 5-9 Urine Specific Lyford 1.015 L 1.016-1.022 Urine Protein NEGATIVE NEGATIVE Urine Glucose (UA) NEGATIVE NEGATIVE Urine Ketones NEGATIVE NEGATIVE Urine Nitrite NEGATIVE NEGATIVE Urine Bilirubin NEGATIVE NEGATIVE Urine Urobilinogen 0.2 < = 1.0 MG/DL Urine Leukocyte Esterase TRACE NEGATIVE Urine RBC (Auto) NEGATIVE NEGATIVE Urine RBC NONE /HPF Urine WBC 5-10 H /HPF Urine Crystals PRESENT H /LPF Urine Amorphous Sediment FEW CÉSAR URATES H /LPF Urine Bacteria TRACE /HPF Urine Casts NONE /LPF Urine Mucus NEGATIVE /LPF Urine Culture Indicated YES Sodium Level 139 135-145 MMOL/L Potassium Level 3.7 3.6-5.0 MMOL/L Chloride Level 102 98-107 MMOL/L Carbon Dioxide Level 26 21-32 MMOL/L Anion Gap 11 5-14 MMOL/L Blood Urea Nitrogen 8 7-18 MG/DL Creatinine 0.76 0.60-1.30 MG/DL Estimat Glomerular Filtration Rate > 60 BUN/Creatinine Ratio 11 Glucose Level 90 70-105 MG/DL Calcium Level 10.2 H 8.5-10.1 MG/DL Corrected Calcium 8.5-10.1 MG/DL Total Bilirubin 0.5 0.1-1.0 MG/DL Aspartate Amino Transf (AST/SGOT) 22 5-34 U/L Alanine Aminotransferase (ALT/SGPT) 27 0-55 U/L Alkaline Phosphatase 75 40-136 U/L C-Reactive Protein High Sensitivity 0.83 H 0.00-0.50 MG/DL Total Protein 9.6 H 6.4-8.2 GM/DL Albumin 4.9 H 3.2-4.5 GM/DL My Orders Orders - JOVANNA MCCOY MD Cbc With Automated Diff (08/31/19 16:50) Comprehensive Metabolic Panel (08/31/19 16:50) Hs C Reactive Protein (08/31/19 16:50) Ua Culture If Indicated (08/31/19 16:50) Ed Iv/Invasive Line Start (08/31/19 16:50) Lactated Ringers (Lr 1000 Ml Iv Solution (08/31/19 16:50) Ketorolac Injection (Toradol Injection) (08/31/19 16:50) Urine Culture (08/31/19 16:51) Flagyl 500 Mg (08/31/19 18:03) Medications Given in ED Current Medications Medications Dose Ordered Sig/Kelly Route Start Time Stop Time Status Last Admin Dose Admin Lactated Ringer's 1,000 ml @ 0 mls/hr Q0M ONCE IV 08/31/19 16:50 12 16:51 DC 08/31/19 17:11 0 MLS/HR Vital Signs/I&O 08/31/19 16:24 Pulse 84 Resp 20 B/P (MAP) 136/83 (100) Pulse Ox 99 Blood Pressure Mean: 100 POS Progress Progress Note : Progress Note Seen and evaluated. IV, labs, UA, LR 1 L bolus and Toradol 30 mg IV. I did review CT scan done 2 days ago as well as results. Monitor patient. 1800: UA does show urinary tract infection. In reviewing her previous cultures, she has had bacterial vaginosis with Gardnerella species and this may be part of the problem this time as well. We will go ahead and initiate Flagyl 500 mg by mouth and continue that outpatient for 7 days. She will continue to take her cephalexin. She has a culture pending both here and at her primary care doctor's office. If the antibiotic is inappropriate then we will call her as I'm sure he will as well. I will send a copy of the chart over to his office. Discharged home with return precautions. Patient verbalize understanding instructions and agreement with plan. She is doing a little bit better now. Departure Impression Primary Impression: Urinary tract infection Qualified Codes: N30.00 - Acute cystitis without hematuria Additional Impression: Suprapubic abdominal pain Disposition: 01 HOME, SELF-CARE Condition: Stable Departure-Patient Inst. Decision time for Depature: 18:04 Referrals: KAMILA HICKS MD (PCP/Family) Primary Care Physician Patient Instructions: Acute Abdomen (Belly Pain), Adult (DC), Bacterial Vaginosis (DC), Urinary Tract Infection, Adult (DC) Add. Discharge Instructions: All discharge instructions reviewed with patient and/or family. Voiced understanding. Take medications as directed. Continue your cephalexin as well as the new antibiotic prescription. You may take Aleve or the generic naproxen [id number], one or 2 tablets twice daily as needed for pain. You may also take Tylenol/acetaminophen 1000 mg every 8 hours as needed for pain. Drink plen ty of fluids. Return for worse pain, fever, vomiting, weakness, breathing problems or other concerns as needed. Scripts Metronidazole (Metronidazole) 500 Mg Tablet 500 MG PO BID, #14 TAB 0 Refills Prov: JOVANNA MCCOY MD 08/31/19 Copy Copies To 1: KAMILA HICKS MD, TIMOTHY D MD Aug 31, 2019 17:31 POS
[2019-08-31 17:41] LABS: BACTERIA,URINE TRACE /HPF
[2019-08-31 17:42] LABS: AMORPHOUS SEDIMENT,UR FEW AMOR URATES /LPF
[2019-08-31] MEDS ORDERED: metroNIDAZOLE 500 MG (FLAGYL) TAB PO STA (18:03)
[2019-08-31] MEDS ORDERED: METR-145 PO (18:06)
[2019-08-31 18:15] VITALS: BP 134/83
--- OUTSIDE RECORDS SUMMARY | 2019-09-26 23:37 | XMS REPORT ---
Author Author Louise CATHERINE Organization 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 [address] [place] [phone] 18 Feb, 2016 Dysuria R30.0 ; Urinary trac t infection, site not specified N39.0 [address], unspecified [address].9 [facility] [address] [id number] [place] [phone] [address], [address] [facility] [address] [place] [phone] Dec, [facility] [id number] [place] [phone] Nov, [facility] [id number] [place] [phone] Nov, [facility] [id number] [place] [phone] Aug, [facility] [id number] [place] [phone] Aug, [facility] [address] [id number] [address] [place] [phone] Aug, [facility] [address] [id number] [address] [place] [phone] Aug, [facility] [address] [facility] [id number] [address] [place] [phone] Aug, [facility] [address] [facility] [id number] [address] [place] [phone] Aug, IMMUNIZATIONS No Known Immunizations SOCIAL HISTORY Never Assessed REASON FOR VISIT PLAN OF CARE VITAL SIGNS Height 62 in 2014-12-19 Weight 117.7 lbs 2014-12-19 Temperature 98.2 degrees Fahrenheit 2014-12-19 Heart Rate 60 bpm 2014-12-19 Respiratory Rate 16 2014-12-19 Blood pressure systolic 100 mmHg 2014-12-19 Blood pressure diastolic 60 mmHg 2014-12-19 MEDICATIONS No Known Medications RESULTS No Results PROCEDURES No Known procedures INSTRUCTIONS MEDICATIONS ADMINISTERED No Known Medications MEDICAL (GENERAL) HISTORY Type Description Date Surgical History section Surgical History tubal ligation
--- OUTSIDE RECORDS SUMMARY | 2019-09-26 23:37 | XMS REPORT ---
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 Name Role Phone PRIMO CAM Unavailable PROBLEMS Type Condition ICD9-CM Code XEO26-MK Code Onset Dates Condition S tatus SNOMED Code Problem Other specified local infections of skin and sub cutaneous tissue 686.8 Active [id number] Problem Acute pharyngitis 462 Active 36 [id number] ALLERGIES No Information ENCOUNTERS Encounter Location Date Diagnosis [facility] [id number] [place] [phone] Sep, Left ear impacted cerumen H6 1.22 and Acute non-recurrent maxillary sinusitis J01.00 [facility] IN [facility] [address] [place] [phone] 18 Feb, 2016 Dysuria R30.0 ; Urinary trac t infection, site not specified N39.0 and Hematuria, unspecified R31.9 [facility] [id number] [place] [phone] 14 Dec, 2014 [facility] [address] [facility] [id number] [address] [place] [phone] Dec, [facility] [id number] [place] [phone] Nov, [facility] [address] [facility] [id number] [address] [place] [phone] Nov, [facility] [id number] [place] [phone] Aug, [facility] [id number] [place] [phone] Aug, [facility] [address] [facility] [id number] [address] [place] [phone] Aug, [facility] [address] [facility] [id number] [address] [place] [phone] Aug, [facility] [address] [facility] [id number] [address] [place] [phone] Aug, [facility] [address] [facility] [id number] [address] [place] [phone] Aug, IMMUNIZATIONS No Known Immunizations SOCIAL HISTORY Never Assessed REASON FOR VISIT PLAN OF CARE VITAL SIGNS Height 62 in 2014-09-08 Weight 118.4 lbs 2014-09-08 Temperature 96.8 degrees Fahrenheit 2014-09-08 Heart Rate 72 bpm 2014-09-08 Respiratory Rate 18 2014-09-08 Blood pressure systolic 110 mmHg 2014-09-08 Blood pressure diastolic 70 mmHg 2014-09-08 MEDICATIONS No Known Medications RESULTS No Results PROCEDURES Procedure Date Ordered Result Body Site STREP A ASSAY W/OPTIC Sep 08, 2014 INSTRUCTIONS MEDICATIONS ADMINISTERED No Known Medications MEDICAL (GENERAL) HISTORY Type Description Date Surgical History section Surgical History tubal ligation
--- OUTSIDE RECORDS SUMMARY | 2019-09-26 23:37 | XMS REPORT ---
Author Author Louise Richardson Doctor Organization [facility] Address Unknown Phone Unavailable Care Team Providers Care Air Quality Instrument Specialist Name Role Phone Migration, Doctor Unavailable Unavailable PROBLEMS Type Condition ICD9-CM Code QSE25-IX Code Onset Dates Condition S tatus SNOMED Code Problem Other specified local infections of skin and sub cutaneous tissue 686.8 Active [id number] Problem Acute pharyngitis 462 Active 36 [id number] ALLERGIES No Information ENCOUNTERS Encounter Location Date Diagnosis [facility] [id number] [address] [place] [phone] Sep, Left ear impacted cerumen H6 1.22 and Acute non-recurrent maxillary sinusitis J01.00 [facility] [address] [place] [phone] 18 Feb, 2016 Dysuria R30.0 ; Urinary trac t infection, site not specified N39.0 and Hematuria, unspecified R31.9 [facility] [address] [place] [phone] 14 Dec, 2014 [facility] [id number] [place] [phone] Dec, [facility] [address] [place] [phone] Nov, [facility] [id number] [place] [phone] Nov, [facility] [address] [place] [phone] Aug, [facility] [id number] [place] [phone] Aug, [facility] [id number] [place] [phone] Aug, [facility] [address] [facility] [id number] [address] [place] [phone] Aug, [facility] [address] [facility] [id number] [address] [place] [phone] Aug, [facility] [address] [facility] [id number] [address] [place] [phone] Aug, IMMUNIZATIONS No Known Immunizations SOCIAL HISTORY Never Assessed REASON FOR VISIT EMR-[facility] PLAN OF CARE VITAL SIGNS MEDICATIONS No Known Medications RESULTS No Results PROCEDURES No Known procedures INSTRUCTIONS MEDICATIONS ADMINISTERED No Known Medications MEDICAL (GENERAL) HISTORY Type Description Date Surgical History section Surgical History tubal ligation
--- OUTSIDE RECORDS SUMMARY | 2019-09-26 23:37 | XMS REPORT | Continuity of Care Document ---
Author Organization Unknown Address Unknown Phone Unavailable Allergies Active Description Code Type Severity Reaction Onset Reported/Identified Relationship to Patient Clinical Status Yes codeine [id number] Drug Allergy Unknown N/A 03/19/2006 Yes codeine Drug Allergy N/A N/A 10/03/2010 Medications There is no data. Problems Date Dx Coded Attending Type Code Diagnosis Diagnosed By 10/03/2010 PRIMO CAM APRN 46 1.9 SINUSITIS ACUTE 10/03/2010 MEGHAN CATHERINE APRN 461 .9 SINUSITIS ACUTE 02/22/2011 Ot 664.81 OB PERINEAL TRAU NEC-DEL 02/22/2011 Ot V06.4 KMR-LEXNSO-ITPWG-RUBELLA 02/22/2011 Ot V07.2 PROP HYLACT IMMUNOTHERAPY 02/22/2011 Ot V27.0 DELI GENET-SINGLE LIVEBORN 07/17/2012 Ot 659.73 ABN FET HT RT/RHYTHM,ANTEPARTUM COND OR 03/30/2013 MICKEY MUNIZ MD Ot 599 .0 URIN TRACT INFECTION NOS 03/30/2013 MICKEY MUNIZ MD Ot 780 .4 DIZZINESS AND GIDDINESS 09/08/2014 PRIMO CAM APRN 46 2 PHARYNGITIS ACUTE 09/08/2014 MEGHAN CATHERINE APRN 462 PHARYNGITIS ACUTE 12/19/2014 MEGHAN CATHERINE APRN 686 .8 OTHER SPECIFIED LOCAL INFECTIONS OF SKIN AND SUBCUTANEOUS TISSUE 07/14/2016 Ot V89.04 JESSIE PECTED PROBLEM WITH GROWTH NOT 09/06/2016 Ot 659.73 ABN FET HT RT/RHYTHM,ANTEPARTUM COND OR 09/06/2016 MICKEY MUNIZ MD Ot F17.210 NICOTINE DEPENDENCE, CIGARETTES, UNCOMPL 09/06/2016 MICKEY MUNIZ MD Ot H92.02 OTALGIA, LEFT EAR 09/06/2016 MICKEY MUNIZ MD Ot J02 .9 ACUTE PHARYNGITIS, UNSPECIFIED 09/06/2016 MICKEY MUNIZ MD Ot M54 .2 CERVICALGIA 09/06/2016 MICKEY MUNIZ MD Ot M62.838 OTHER MUSCLE SPASM 09/06/2016 Ot 659.73 ABN FET HT RT/RHYTHM,ANTEPARTUM COND OR 09/08/2016 MICKEY MUNIZ MD Ot F17.210 NICOTINE DEPENDENCE, CIGARETTES, UNCOMPL 09/08/2016 MICKEY MUNIZ MD Ot H92.02 OTALGIA, LEFT EAR 09/08/2016 MICKEY MUNIZ MD Ot J02 .9 ACUTE PHARYNGITIS, UNSPECIFIED 09/08/2016 MICKEY MUNIZ MD Ot M54 .2 CERVICALGIA 09/08/2016 MICKEY MUNIZ MD Ot M62.838 [...] Z80.3 FAMILY HISTORY OF MALIGNANT NEOPLASM OF 11/22/2018 AC PIMENTEL MD Ot C53.8 MALIGNANT NEOPLASM OF OVERLAPPING SITES 11/23/2018 AC PIMENTEL MD, Ot C53.8 MALIGNANT NEOPLASM OF OVERLAPPING SITES 11/26/2018 RANDY RUIZ APRN Ot C53 .9 MALIGNANT NEOPLASM OF CERVIX UTERI, [facility] 11/26/2018 RANDY RUIZ APRN Ot I80 .8 PHLEBITIS AND THROMBOPHLEBITIS OF OTHER 11/26/2018 RANDY RUIZ APRN Ot M79.602 PAIN IN LEFT ARM 11/26/2018 RANDY RUIZ APRN Ot Z86.19 PERSONAL HISTORY OF OTHER INFECTIOUS AND 11/26/2018 RANDY RUIZ APRN Ot Z88 .5 ALLERGY STATUS TO NARCOTIC AGENT STATUS 11/26/2018 RANDY RUIZ APRN Ot Z98.51 TUBAL LIGATION STATUS 11/29/2018 RANDY RUIZ APRN Ot C53 .9 MALIGNANT NEOPLASM OF CERVIX UTERI, [facility] 11/29/2018 RANDY RUIZ APRN Ot I80 .8 PHLEBITIS AND THROMBOPHLEBITIS OF OTHER 11/29/2018 RANDY RUIZ APRN Ot M79.602 PAIN IN LEFT ARM 11/29/2018 RANDY RUIZ APRN Ot Z86.19 PERSONAL HISTORY OF OTHER INFECTIOUS AND 11/29/2018 RANDY RUIZ APRN Ot Z88 .5 ALLERGY STATUS TO NARCOTIC AGENT STATUS 11/29/2018 RANDY RUIZ APRN Ot Z98.51 TUBAL LIGATION STATUS 12/05/2018 AC PIMENTEL MD, Ot C53.9 MALIGNANT NEOPLASM OF CERVIX UTERI, [facility] 12/05/2018 AC PIMENTEL MD Ot F17.210 NICOTINE DEPENDENCE, CIGARETTES, UNCOMPL 12/05/2018 AC PIMENTEL MD Ot M32.9 SYSTEMIC LUPUS ERYTHEMATOSUS, UNSPECIFIE 12/05/2018 AC PIMENTEL MD Ot Z80.3 FAMILY HISTORY OF MALIGNANT NEOPLASM OF 01/24/2019 AC PIMENTEL MD Ot C53.9 MALIGNANT NEOPLASM OF CERVIX UTERI, [facility] 01/24/2019 AC PIMENTEL MD Ot F17.210 NICOTINE DEPENDENCE, CIGARETTES, UNCOMPL 01/24/2019 AC PIMENTEL MD Ot M32.9 SYSTEMIC LUPUS ERYTHEMATOSUS, UNSPECIFIE 01/24/2019 AC PIMENTEL MD Ot Z80.3 FAMILY HISTORY OF MALIGNANT NEOPLASM OF 01/26/2019 AC PIMENTEL MD Ot 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 31 RIGHT LOWER QUADRANT PAIN 08/30/2019 KAMILA HICKS MD Ot Z85. 41 PERSONAL HISTORY OF MALIGNANT NEOPLASM O 08/30/2019 KAMILA HICKS MD Ot R10. 31 RIGHT LOWER QUADRANT PAIN 08/30/2019 KAMILA HICKS MD Ot Z85. 41 PERSONAL HISTORY OF MALIGNANT NEOPLASM O 08/31/2019 JOVANNA CMCOY MD, Ot F17.210 NICOTINE DEPENDENCE, CIGARETTES, UNCOMPL 08/31/2019 JOVANNA MCCOY MD, Ot N39.0 URINARY TRACT INFECTION, SITE NOT SPECIF 08/31/2019 JOVANNA MCCOY MD Ot R10.31 RIGHT LOWER QUADRANT PAIN 08/31/2019 JOVANNA MCCOY MD Ot Z85.41 PERSONAL HISTORY OF MALIGNANT NEOPLASM O 08/31/2019 JOVANNA MCCOY MD Ot Z87.39 PERSONAL HISTORY OF DISEASES OF THE MS S 08/31/2019 JOVANNA MCCOY MD Ot Z87.442 PERSONAL HISTORY OF URINARY CALCULI 08/31/2019 JOVANNA MCCOY MD Ot Z88.5 ALLERGY STATUS TO NARCOTIC AGENT STATUS 08/31/2019 JOVANNA MCCOY MD Ot Z98.51 TUBAL LIGATION STATUS 09/05/2019 JOVANNA MCCOY MD Ot F17.210 NICOTINE DEPENDENCE, CIGARETTES, UNCOMPL 09/05/2019 JOVANNA MCCOY MD Ot N39.0 URINARY TRACT INFECTION, SITE NOT SPECIF 09/05/2019 JOVANNA MCCOY MD, Ot R10.31 RIGHT LOWER QUADRANT PAIN 09/05/2019 JOVANNA MCCOY MD, Ot Z85.41 PERSONAL HISTORY OF MALIGNANT NEOPLASM O 09/05/2019 JOVANNA MCCOY MD, Ot Z87.39 PERSONAL HISTORY OF DISEASES OF THE MS S 09/05/2019 JOVANNA MCCOY MD, Ot Z87.442 PERSONAL HISTORY OF URINARY CALCULI 09/05/2019 JOVANNA MCCOY MD, Ot Z88.5 ALLERGY STATUS TO NARCOTIC AGENT STATUS 09/05/2019 OJVANNA MCCOY MD, Ot Z98.51 TUBAL LIGATION STATUS 09/11/2019 KAMILA HICKS MD, Ot R10. 31 RIGHT LOWER QUADRANT PAIN 09/11/2019 KAMILA HICKS MD, Ot Z85. 41 PERSONAL HISTORY OF MALIGNANT NEOPLASM O Procedures Code Description Performed By Per formed On 75.69 02/20/2011 [id number] STRE P A (IN-HOUSE) 09/08/2014 Results Test Result Range Complete blood count (CBC) with automate d white blood cell (WBC) differential - 09/06/16 14:57 Blood leukocytes automated count (number/volume) 9.3 10*3/uL 4.3-11.0 Blood erythrocytes automated count (number/volume) 4.04 10*6/uL 4.35-5.85 Venous blood hemoglobin measurement (mass/volume) 12.6 g/dL 11.5-16.0 Blood hematocrit (volume fraction) 37 % 35-52 Automated erythrocyte mean corpuscular volume 93 [ foz_us] 80-99 Automated erythrocyte mean corpuscular h emoglobin (mass per erythrocyte) 31 pg 25-34 Automated erythrocyte mean corpuscular h emoglobin concentration measurement (mass/volume) 34 g/dL 32-36 Automated erythrocyte distribution width ratio 11. 7 % 10.0- 14.5 Automated blood platelet count (count/volume) 204 10*3/uL [...] 10*3 1.0-4.0 Blood monocytes automated count (number/volume) 0. 8 10*3 0.0-1.0 Automated eosinophil count 0.2 10*3/uL 0 .0-0.3 Automated blood basophil count (count/volume) 0.0 10*3/uL 0.0-0.1 Comprehensive metabolic panel - 09/06/16 14:57 Serum or plasma sodium measurement (moles/volume) 138 mmol/L 135-145 Serum or plasma potassium measurement (moles/volume) 3.5 mmol/L 3.6-5.0 Serum or plasma chloride measurement (moles/volume) 108 mmol/L 98-107 Carbon dioxide 20 mmol/L 21-32 Serum or plasma anion gap determination (moles/volume) 10 mmol/L 5-14 Serum or plasma urea nitrogen measurement (mass/volume ) 9 mg/dL 7-18 Serum or plasma creatinine measurement (mass/volume) 0.71 mg/dL 0.60-1.30 Serum or plasma urea nitrogen/creatinine mass ratio 13 NRG Serum or plasma creatinine measurement w ith calculation of estimated glomerular filtration rate > NRG Serum or plasma glucose measurement (mass/volume) 98 mg/dL 70-105 Serum or plasma calcium measurement (mass/volume) 8.6 mg/dL 8.5-10.1 Serum or plasma total bilirubin measurement (mass/volu me) 0.6 mg/dL 0.1-1.0 Serum or plasma alkaline phosphatase rivka surement (enzymatic activity/volume) 54 U/L 40-136 Serum or plasma aspartate aminotransfera se measurement (enzymatic activity/volume) 17 U/L 5-34 Serum or plasma alanine aminotransferase measurement (enzymatic activity/volume) 14 U/L 0-55 Serum or plasma protein measurement (mass/volume) 8.0 g/dL 6.4-8.2 Serum or plasma albumin measurement (mass/volume) 4.0 g/dL 3.2-4.5 Complete blood count (CBC) with automate d white blood cell (WBC) differential - 11/26/18 20:50 Blood leukocytes automated count (number/volume) 4.5 10*3/uL 4.3-11.0 Blood erythrocytes automated count (number/volume) 3.72 10*6/uL 4.35-5.85 Venous blood hemoglobin measurement (mass/volume) 11.2 g/dL 11.5-16.0 Blood hematocrit (volume fraction) 33 % 35-52 Automated erythrocyte mean corpuscular volume 90 [ foz_us] 80-99 Automated erythrocyte mean corpuscular h emoglobin (mass per erythrocyte) 30 pg 25-34 Automated erythrocyte mean corpuscular h emoglobin concentration measurement (mass/volume) 34 g/dL 32-36 Automated erythrocyte distribution width ratio 12. 1 % 10.0- 14.5 Automated blood platelet count (count/volume) 143 10*3/uL 130-400 Automated blood platelet mean volume measurement 10.6 [foz_us] 7.4-10.4 Automated blood neutrophils/100 leukocytes 85 % 42-75 Automated blood lymphocytes/100 leukocytes 7 % 12-44 Blood monocytes/100 leukocytes 6 % 0-12 Automated blood eosinophils/100 leukocytes 3 % 0-10 Automated blood basophils/100 leukocytes 0 % 0-10 Blood neutrophils automated count (number/volume) 3.8 10*3 1.8-7.8 Blood lymphocytes automated count (number/volume) 0.3 10*3 1.0-4.0 Blood monocytes automated count (number/volume) 0. 3 10*3 0.0-1.0 Automated eosinophil count 0.1 10*3/uL 0 .0-0.3 Automated blood basophil count (count/volume) 0.0 10*3/uL 0.0-0.1 Whole blood basic metabolic panel - /0 11/15 20:50 Serum or plasma sodium measurement (moles/volume) 137 mmol/L 135-145 Serum or plasma potassium measurement (moles/volume) 3.7 mmol/L 3.6-5.0 Serum or plasma chloride measurement (moles/volume) 101 mmol/L 98-107 Carbon dioxide 26 mmol/L 21-32 Serum or plasma anion gap determination (moles/volume) 10 mmol/L 5-14 Serum or plasma urea nitrogen measurement (mass/volume ) 10 mg/dL 7-18 Serum or plasma creatinine measurement (mass/volume) 0.68 mg/dL 0.60-1.30 Serum or plasma urea nitrogen/creatinine mass ratio 15 NRG Serum or plasma creatinine measurement w ith calculation of estimated glomerular filtration rate > NRG Serum or plasma glucose measurement (mass/volume) 95 mg/dL 70-105 Serum or plasma calcium measurement (mass/volume) 9.2 mg/dL 8.5-10.1 Blood manual differential performed dete ction - 11/26/18 20:50 Blood monocytes/100 leukocytes 11 % NRG Manual blood segmented neutrophils/100 leukocytes 80 % NRG Blood band neutrophils/100 leukocytes 2 % NRG Manual blood lymphocytes/100 leukocytes 4 % NRG Manual eosinophils/100 leukocytes in nose 3 % NRG Blood erythrocyte morphology finding identification NORMAL NRG Bacterial urine culture - 12/12/18 09:28 Bacterial urine culture SEE REPORT NRG COLONY COUNT . NRG Complete blood count (CBC) with automate d white blood cell (WBC) differential - 08/31/19 16:51 Blood leukocytes automated count (number/volume) 4.9 10*3/uL 4.3-11.0 Blood erythrocytes automated count (number/volume) 4.08 10*6/uL 4.35-5.85 Venous blood hemoglobin measurement (mass/volume) 12.9 g/dL 11.5-16.0 Blood hematocrit (volume fraction) 38 % 35-52 Automated erythrocyte mean corpuscular volume 94 [ foz_us] 80-99 Automated erythrocyte mean corpuscular h emoglobin (mass per erythrocyte) 32 pg 25-34 Automated erythrocyte mean corpuscular h emoglobin concentration measurement (mass/volume) 34 g/dL 32-36 Automated erythrocyte distribution width ratio 12. 7 % 10.0- 14.5 Automated blood platelet count (count/volume) 189 10*3/uL 130-400 Automated blood platelet mean volume measurement 10.1 [foz_us] 7.4-10.4 Automated blood neutrophils/100 leukocytes 73 % 42-75 Automated blood lymphocytes/100 leukocytes 15 % 12-44 Blood monocytes/100 leukocytes 9 % 0-12 Automated blood eosinophils/100 leukocytes 2 % 0-10 Automated blood basophils/100 leukocytes 0 % 0-10 Blood neutrophils automated count (number/volume) 3.6 10*3 1.8-7.8 Blood lymphocytes automated count (number/volume) 0.7 10*3 1.0-4.0 Blood monocytes automated count (number/volume) 0. 5 10*3 0.0-1.0 Automated eosinophil count 0.1 10*3/uL 0 .0-0.3 Automated blood basophil count (count/volume) 0.0 10*3/uL 0.0-0.1 Comprehensive metabolic panel - 08/31/19 16:51 Serum or plasma sodium measurement (moles/volume) 139 mmol/L 135-145 Serum or plasma potassium measurement (moles/volume) 3.7 mmol/L 3.6-5.0 Serum or plasma chloride measurement (moles/volume) 102 mmol/L 98-107 Carbon dioxide 26 mmol/L 21-32 Serum or plasma anion gap determination (moles/volume) 11 mmol/L 5-14 Serum or plasma urea nitrogen measurement (mass/volume ) 8 mg/dL 7-18 Serum or plasma creatinine measurement (mass/volume) 0.76 mg/dL 0.60-1.30 Serum or plasma urea nitrogen/creatinine mass ratio 11 NRG Serum or plasma creatinine measurement w ith calculation of estimated glomerular filtration rate > NRG Serum or plasma glucose measurement (mass/volume) 90 mg/dL 70-105 Serum or plasma calcium measurement (mass/volume) 10.2 mg/dL 8.5-10.1 Serum or plasma total bilirubin measurement (mass/volu me) 0.5 mg/dL 0.1-1.0 Serum or plasma alkaline phosphatase rivka surement (enzymatic activity/volume) 75 U/L 40-136 Serum or plasma aspartate aminotransfera se measurement (enzymatic activity/volume) 22 U/L 5-34 Serum or plasma alanine aminotransferase measurement (enzymatic activity/volume) 27 U/L 0-55 Serum or plasma protein measurement (mass/volume) 9.6 g/dL 6.4-8.2 Serum or plasma albumin measurement (mass/volume) 4.9 g/dL 3.2-4.5 Serum or plasma C reactive protein measu rement (mass/volume) - 08/31/19 16:51 Serum or plasma C reactive protein measurement (mass/v olume) 0.83 mg/dL 0.00-0.50 Complete urinalysis with reflex to cultu re - 08/31/19 16:51 Urine color determination YELLOW NRG Urine clarity determination CLEAR NR G Urine pH measurement by test strip 5.5 5-9 Specific gravity of urine by test strip 1.015 1.016-1.022 Urine protein assay by test strip, semi-quantitative NEGATIVE NEGATIVE Urine glucose detection by automated test strip NE GATIVE NEGATIVE Erythrocytes detection in urine sediment by light micr oscopy NEGATIVE NEGATIVE Urine ketones detection by automated test strip NE GATIVE NEGATIVE Urine nitrite detection by test strip NEGATIVE NEGATIVE Urine total bilirubin detection by test strip NEGA TIVE NEGATIVE Urine urobilinogen measurement by automated test strip (mass/volume) 0.2 mg/dL < = 1.0 Urine leukocyte esterase detection by dipstick TRA CE NEGATIVE Automated urine sediment erythrocyte cou nt by microscopy (number/high power field) NONE NRG Automated urine sediment leukocyte count by microscopy (number/high power field) [HPF] NRG Bacteria detection in urine sediment by light microsco py TRACE NRG Crystals detection in urine sediment by light microsco py PRESENT NRG Casts detection in urine sediment by light microscopy NONE NRG Mucus detection in urine sediment by light microscopy NEGATIVE NRG Complete urinalysis with reflex to culture YES NRG Amorphous sediment detection in urine sediment by ligh t microscopy FEW CÉSAR URATES NRG Bacterial urine culture - 08/31/19 16:51 Bacterial urine culture NG NRG Encounters ACCT No. Visit Date/Time Discharge Status Pt. Type Provider Facility Loc./Unit Complaint [id number] 12/19/2014 11:11:00 12/19/2014 23:59: 59 CLS Outpatient MEGHAN CATHERINE APRN [id number] 09/08/2014 10:15:00 09/08/2014 23:59: 59 CLS Outpatient PRIMO CAM APRN [id number] 09/16/2019 14:05:00 09/16/2019 23:59: 59 CLS Outpatient MEGHAN CATHERINE APRN [facility] [id number] 08/31/2019 16:19:00 18:15:00 DIS Emergency JOVANNA MCCOY MD Via [facility] ER R SIDE ABD PAIN [id number] 08/29/2019 16:41:00 23:59:59 CLS Outpatient KAMILA HICKS MD Via [facility] RAD RLQ ABD PAIN [id number] 01/25/2019 00:13:00 23:59:59 CLS Preadmit AC PIMENTEL MD Via [facility] ONC [id number] 12/16/2018 08:38:00 00:01:00 DIS Outpatient AC PIMENTEL MD [facility] ONC [id number] 12/19/2018 12:22:00 23:59:59 CLS Preadmit MERLYN WALTERS, LORI allen [facility] RAD MALIGNANT NEOPLASM OF C ERVIX UTERI [id number] 11/26/2018 19:33:00 21:37:00 DIS Emergency RANDY RUIZ APRN [facility] ER PAIN FROM PICLINE [id number] 11/22/2018 09:41:00 10:55:00 DIS Outpatient AC PIMENTEL MD [facility] SDC CERVICAL CANCER [id number] 09/06/2016 14:33:00 016 16:36:00 DIS Emergency MICKEY MUNIZ MD Via [facility] ER NECK PAIN/HEAD PAIN/SOR E THROAT [id number] 03/30/2013 11:17:00 013 14:54:00 DIS Emergency MICKEY MUNIZ MD Via [facility] ER DIZZINESS [id number] 07/13/2012 00:00:00 Document Registration [id number] 07/11/2012 13:15:00 Document Registration [id number] 05/12/2012 14:45:00 Document Registration [id number] 02/20/2011 03:29:00 Document Registration
--- OUTSIDE RECORDS SUMMARY | 2019-09-26 23:37 | XMS REPORT ---
Author Author Louise CAM Organization [facility] Address [address] [place] [address] Care Team Providers Care Home Mission Worker Name Role Phone PRIMO CAM Unavailable PROBLEMS Type Condition ICD9-CM Code [id number] Code Onset Dates Condition S tatus SNOMED Code Problem Other specified local infections of skin and sub cutaneous tissue 686.8 Active 277695047 Problem Acute pharyngitis 462 Active 36 [id number] ALLERGIES No Information ENCOUNTERS Encounter Location Date Diagnosis [facility] WALK IN [facility] [id number] [place] [phone] Sep, Left ear impacted cerumen H6 1.22 and Acute non-recurrent maxillary sinusitis J01.00 [facility] IN [facility] [address] [place] [phone] 18 Feb, 2016 Dysuria R30.0 ; Urinary trac t infection, site not specified N39.0 and Hematuria, unspecified R31.9 [facility] [id number] [place] [phone] 14 Dec, 2014 [facility] [address] [facility] [id number] [address] [place] [phone] Dec, [facility] [id number] [place] [phone] Nov, [facility] [address] [facility] [id number] [address] [place] [phone] Nov, [facility] [id number] [place] [phone] Aug, [facility] [address] [facility] [id number] [address] [place] [phone] Aug, [facility] [address] [facility] [id number] [address] [place] [phone] Aug, [facility] [address] [facility] [id number] [address] [place] [phone] Aug, [facility] [address] [facility] [id number] [address] [place] [phone] Aug, [facility] [address] [facility] [id number] [address] [place] [phone] Aug, IMMUNIZATIONS No Known Immunizations SOCIAL HISTORY Never Assessed REASON FOR VISIT PLAN OF CARE VITAL SIGNS MEDICATIONS No Known Medications RESULTS No Results PROCEDURES No Known procedures INSTRUCTIONS MEDICATIONS ADMINISTERED No Known Medications MEDICAL (GENERAL) HISTORY Type Description Date Surgical History section Surgical History tubal ligation
--- OUTSIDE RECORDS SUMMARY | 2019-09-26 23:37 | XMS REPORT ---
Author Author Louise Richardson Doctor Organization [facility] Address Unknown Phone Unavailable Care Team Providers Care Tile Mechanic Helper Name Role Phone Migration, Doctor Unavailable Unavailable PROBLEMS Type Condition ICD9-CM Code [id number] Code Onset Dates Condition S tatus SNOMED Code Problem Other specified local infections of skin and sub cutaneous tissue 686.8 Active [id number] Problem Acute pharyngitis 462 Active 36 [id number] ALLERGIES No Information ENCOUNTERS Encounter Location Date Diagnosis [facility] [id number] [place] [phone] Sep, Left ear impacted cerumen H6 1.22 and Acute non-recurrent maxillary sinusitis J01.00 [facility] IN CARE [address] [place] [phone] 18 Feb, 2016 Dysuria R30.0 ; Urinary trac t infection, site not specified N39.0 and Hematuria, unspecified R31.9 [facility] [address] [place] [phone] 14 Dec, 2014 [facility] [id number] [place] [phone] Dec, [facility] [address] [place] [phone] Nov, [facility] [id number] [place] [phone] Nov, [facility] [address] [place] [phone] Aug, [facility] [id number] [place] [phone] Aug, [facility] [id number] [place] [phone] Aug, [facility] [address] [facility] [id number] [address] [place] [phone] Aug, [facility] [address] [facility] [id number] [address] [place] [phone] Aug, [facility] [address] [facility] [id number] [address] [place] [phone] Aug, IMMUNIZATIONS No Known Immunizations SOCIAL HISTORY Never Assessed REASON FOR VISIT [facility] PLAN OF CARE VITAL SIGNS MEDICATIONS Medication Instructions Dosage Frequency Start Date End Date Duration S tatus Bactrim DS 800-160 mg 1 tablet by Oral route 2 times p er day for 7 day(s) Nov, Active Amoxicillin 500 mg 1 capsule by Oral route 3 times per day for 10 days Aug, Active Ibuprofen 800 mg take 1 tablet (800 m g) by oral route 3 times per day with food Nov, Active RESULTS No Results PROCEDURES No Known procedures INSTRUCTIONS MEDICATIONS ADMINISTERED No Known Medications MEDICAL (GENERAL) HISTORY Type Description Date Surgical History section Surgical History tubal ligation
--- OUTSIDE RECORDS SUMMARY | 2019-09-26 23:37 | XMS REPORT | Clinical Summary ---
Author Author [facility] Organization [facility] Address Unknown Phone Unavailable Care Team Providers Care Solder Making Laborer Name Role Phone Demetrius Villalobos MD Unavailable Ja Villegas MD Unavailable Mike Barth DO PCP Kezia Hopkins MD Unavailable Unavailable Source Comments Some departments are not documenting in the electronic medical record. If you d o not see the information that you expected, contact Release of Information in [facility] [employer] Information Management department at [phone] for further assistan ce in locating additional records.[facility] Allergies Comments Active Allergy Reactions Severity Noted Date Codeine UNKNOWN 02/07/2013 Medications End Date Status Medication Sig Dispensed Refills Start Date Active hydroxychloroquine Take 300 mg 45 Tab 3 01 (PLAQUENIL) 200 mg daily (1.5 mg 3 [...] Name Comments Heart defect Daughter Congential heart Bl ock, 2:1 Block Cancer Maternal Grandfather Hypertension Paternal Grandmother Relation Name Status Comments Daughter Maternal Grandfather Paternal Grandmother Social History Date Tobacco Use Types Packs/Day Years Used Current Every Day Smoker Cigarettes 0.4 Smokeless Tobacco: Never Used Drinks/Week oz/Week Comments Alcohol Use No Sex Assigned at Date Recorded Not on file Industry Job Start Date Occupation Not on file Not on file Not on file Travel End Travel History Travel Start No recent travel history available. Last Filed Vital Signs Reading Time Taken Comments Vital Sign 101/58 02/14/2014 4:10 PM CDT Blood Pressure 68 02/14/2014 4:10 PM CDT Pulse 36.3 C (97.3 F) 02/14/2014 4:10 PM CDT Temperature 18 02/14/2014 4:10 PM CDT Respiratory Rate - - Oxygen Saturation - - Inhaled Oxygen Concentration 56.9 kg (125 lb 6.4 oz) 02/14/2014 4:10 PM CDT Weight 157.3 cm (5' 1.93") 02/14/2014 4:10 PM CDT Height 22.99 02/14/2014 4:10 PM CDT Body Mass Index Plan of Treatment Health Maintenance Due Date Last Done Comments DTAP/TDAP VACCINES ( - 1995 Tdap) HIV SCREENING 1999 PHYSICAL (COMPREHENSIVE) 2002 EXAM CERVICAL CANCER SCREENING 2014 INFLUENZA VACCINE 04/27/2019 Results Not on filefrom Last 3 Months Insurance Type Payer Benefit Subscriber ID Effective Phone Address Plan / Dates Group PPO BCBS [employer] xxxxxxxxxxxxxxx 2013-P OUT OF resent STATE [id number] Advance Directives Patient C Python Developer Explanation Type Date Recorded Advance 02/14/2014 5:08 PM Directive/DPOA
== END 2019-08-31 18:15 | disposition home or self-care (01) ==
LOC: EDUNIT# 16:17 → ER 16:19
DX: N39.0 Urinary tract infection, site not specified (principal); F17.210 Nicotine dependence, cigarettes, uncomplicated; Z98.51 Tubal ligation status; Z87.442 Personal history of urinary calculi; Z85.41 Personal history of malignant neoplasm of cervix uteri; Z88.5 Allergy status to narcotic agent; Z87.39 Personal history of other diseases of the musculoskeletal system and connective tissue
CPT/HCPCS: 36415; 80053; 81000; 85025; 86141; 87088; 96361; 96374

== ENCOUNTER → 2020-01-16 | Outpatient (CLI) | payer OTHER ==
[~2020-01-16] MED LIST changes: +METR-145 PO
--- NOTE | 2020-01-16 13:43 | Diagnostic Imaging Report ---
EXAMINATION: Pelvic ultrasound. INDICATION: History of bladder pressure. FINDINGS: There are no prior bladder ultrasound examinations available for comparison. The bladder was visualized, but the bladder is only partially distended by urine. The prevoid bladder volume was 44.5 mL. Both ureteral jets are noted. There is no obvious bladder mass noted. Following voiding, there was virtually no urine within the bladder. IMPRESSION: 1. There is no obvious bladder abnormality although the bladder was not well distended. 2. There was complete clearing of the urine from the bladder following voiding. Dictated by: Dictated on workstation # [id number]
== END ==
LOC: RAD 13:01
PROVIDERS: ATTEND Family Medicine
DX: R30.0 Dysuria (principal); N32.89 Other specified disorders of bladder
CPT/HCPCS: 76857

== ENCOUNTER → 2020-02-16 | Outpatient (CLI) | payer OTHER ==
[~2020-02-16] MED LIST changes: +CATHETER FLUSH 10 ML SYR IV PRN; +HOLD METFORMIN - RECEIVED CONTRAST 20 ML VIAL IV SCH; +IOHEXOL 350 MG/ML 100 ML (OMNIPAQUE 350) VIAL IV ONE; +NS 100 ML (IVPB) BAG IV ONE
--- NOTE | 2020-02-16 14:45 | Diagnostic Imaging Report ---
EXAMINATION: CT Chest, Abdomen and Pelvis with intravenous contrast. TECHNIQUE: Multiple contiguous axial images were obtained through the chest, abdomen and pelvis after the uneventful administration of intravenous contrast. All CT scans use one or more of the following dose optimizing techniques: automated exposure control, MA and/or KvP adjustment based on a patient size and exam type, or iterative reconstruction. HISTORY: Cervical cancer. COMPARISON: 08/29/2019. FINDINGS: There is no edema or pneumonia. No pleural effusion. No pneumothorax. No suspicious nodules. Heart size is normal. There are no coronary artery calcifications. No pericardial effusion. Aorta is normal in caliber. There is no axillary or supraclavicular lymphadenopathy. There is no mediastinal lymphadenopathy. Normal thymus is seen in the anterior mediastinum. The liver is normal without focal lesion. There is no biliary ductal dilation. Gallbladder is normal. Pancreas is normal. Spleen is normal. Adrenal glands are normal. The kidneys are normal. There is no hydronephrosis. Urinary bladder organs appear normal without evidence for local recurrence. Visualized bowel is normal in caliber without obstruction or inflammation. No free fluid or air. No abdominal or pelvic lymphadenopathy. Aorta is normal in caliber without aneurysm. There are no suspicious osseus lesions. IMPRESSION: 1. No metastatic disease in the chest, abdomen, or pelvis. Dictated by: Dictated on workstation # [id number]
== END ==
LOC: RAD 11:05
PROVIDERS: ATTEND Nurse Practitioner
DX: C53.1 Malignant neoplasm of exocervix (principal)
CPT/HCPCS: 71260; 74177

== ENCOUNTER 2022-01-15 09:25 | Emergency (ER) | payer OTHER ==
[~2022-01-15] VITALS: Ht 157 cm; Wt 70.0 kg
[~2022-01-15 09:25] MED LIST changes: -CATHETER FLUSH 10 ML SYR IV PRN; -HOLD METFORMIN - RECEIVED CONTRAST 20 ML VIAL IV SCH; -IOHEXOL 350 MG/ML 100 ML (OMNIPAQUE 350) VIAL IV ONE; -NS 100 ML (IVPB) BAG IV ONE
[2022-01-15] MEDS ORDERED: FAMOTIDINE 20 MG (PEPCID) TABLET PO STA (09:48)
[2022-01-15 09:53] LABS: BASOPHILS % (AUTO) 0 % (0-10); EOSINOPHILS # (AUTO) 0.1 10^3/uL (0.0-0.3); EOSINOPHILS % (AUTO) 2 % (0-10); HEMATOCRIT 36 % (35-52); HEMOGLOBIN 12.2 g/dL (11.5-16.0); LYMPHOCYTES % (AUTO) 21 % (12-44); MEAN CORPUSCULAR HEMOGLOBIN 32 pg (25-34); MEAN CORPUSCULAR HGB CONC 34 g/dL (32-36); MEAN CORPUSCULAR VOLUME 94 fL (80-99); MEAN PLATELET VOLUME 9.7 fL (9.0-12.2); MONOCYTES # (AUTO) 0.4 10^3/uL (0.0-1.0); MONOCYTES % (AUTO) 8 % (0-12); NEUTROPHILS # (AUTO) 3.3 10^3/uL (1.8-7.8); NEUTROPHILS % (AUTO) 68 % (42-75); PLATELET COUNT 241 10^3/uL (130-400); WHITE BLOOD COUNT 4.8 10^3/uL (4.3-11.0)
[2022-01-15] MEDS ORDERED: ACETAMINOPHEN 500 MG TAB (TYLENOL) PO ONE (10:00)
[2022-01-15] MEDS ORDERED: ANTACID SUSP 30 ML UDC (MYLANTA) PO ONE (10:00)
[2022-01-15] MEDS ORDERED: LIDOCAINE 2% VISCOUS 15 ML UDC PO ONE (10:00)
[2022-01-15 10:01] LABS: ALBUMIN 4.3 GM/DL (3.2-4.5)
[2022-01-15 10:02] LABS: POTASSIUM 3.9 MMOL/L (3.6-5.0)
[2022-01-15 10:03] LABS: CALCIUM 9.3 MG/DL (8.5-10.1)
[2022-01-15 10:04] LABS: TOTAL PROTEIN 9.4 GM/DL (6.4-8.2)
[2022-01-15 10:06] LABS: BILIRUBIN,TOTAL 0.4 MG/DL (0.1-1.0)
--- NOTE | 2022-01-15 10:06 | ED Abdominal Pain ---
General Chief Complaint: Abdominal/GI Problems Stated Complaint: ABD PAIN Nursing Triage Note: pt reports waking up this morning with upper abd pain radiating to back. pt also reports nausea Source of Information: Patient Exam Limitations: No Limitations History of Present Illness Date Seen by Provider: Jan 15, 2022 Time Seen by Provider: 09:27 Initial Comments 36-year-old female with no pertinent past medical history coming in due to e pigastric pain that feels like sharp pain starting at 4 AM this morning. Is been constant, moderate, and does have a burning quality that goes up her chest that feels like it is on fire per the patient. She tried some Pepto-Bismol which did not help. She also tried ibuprofen. She rarely takes any NSAIDs. Last ate yesterday. No vomiting, diarrhea, chest pain, shortness of breath, weakness, numbness, rash, or any other concerns. She never had pain like this before. Of note, she previously had cervical cancer and had radiation as well as chemotherapy. She is now in menopause from this and has not had a period in over 2 years. Allergies and Home Medications Allergies Coded Allergies: codeine (Verified Allergy, Unknown, 03/19/06) Patient Home Medication List Home Medication List Reviewed: Yes Calcium Carbonate/Vitamin D3 (Vitamin D3 5,000 Unit Tablet) 1 Each Tablet, 1 EACH PO WEEKLY, (Reported) Entered as Reported by: HÉCTOR GARRISON on 03/30/13 1131 Cephalexin (Keflex) 500 Mg Capsule, 500 MG PO TID Prescribed by: RANDY RUIZ on 11/26/182048 Metronidazole (Metronidazole) 500 Mg Tablet, 500 MG PO BID Prescribed by: JOVANNA MCCOY on 08/31/19 180 Multivitamins W-Iron (Chewable Multivitamin W-Iron) 1 Each Tab.chew, 1 EACH PO DAILY, (Reported) Entered as Reported by: GAVIOTA GUERRA on 07/07/12 1733 Pantoprazole Sodium (Pantoprazole Sodium) 20 Mg Tablet.dr, 20 MG PO DAILY Prescribed by: ISELA BOWDEN on 01/15/22 1050 Sulfamethoxazole/Trimethoprim (Bactrim DS) 1 Each Tablet, 1 EACH PO BID Prescribed by: MICKEY MUNIZ on 03/30/13 1439 [Flexeril] , 10 MG twice a day Prescribed by: MICKEY MUNIZ on 09/06/16 1630 [Plaquenil] , (Reported) Entered as Reported by: HÉCTOR GARRISON on 03/30/13 1131 Review of Systems Review of Systems Constitutional: No chills EENTM: No Blurred Vision Respiratory: Denies Cough, Denies Shortness of Air Cardiovascular: Denies Chest Pain Gastrointestinal: Abdominal Pain Genitourinary: No Symptoms Reported Musculoskeletal: no symptoms reported Skin: no symptoms reported Psychiatric/Neurological: No Symptoms Reported Endocrine: No Symptoms Reported Hematologic/Lymphatic: No Symptoms Reported All Other Systems Reviewed Negative Unless Noted: Yes Past Bmrhlsq-Xuqtbq-Dtheky Hx Patient Social History Tobacco Use?: Yes Smoking Status: Former Smoker Substance use?: No Alcohol Use?: No Seasonal Allergies Seasonal Allergies: No Past Medical History Surgery/Hospitalization HX: 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 Surgeries: Yes ( X1, ) Tubal Ligation Respiratory: No Cardiac: No Neurological: No 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 0oz. 63.274681ip; 28.00 BMI Method:Stated General Appearance: WD/WN, no apparent distress HEENT: PERRL/EOMI, normal ENT inspection, pharynx normal Neck: non-tender, full range of motion, supple, normal inspection Respiratory: chest non-tender, lungs clear, normal breath sounds, no respiratory distress, no accessory muscle use Cardiovascular: regular rate, rhythm, no edema, no murmur Gastrointestinal: normal bowel sounds, non tender, soft; No distended, No guarding, No rebound Extremities: normal range of motion, non-tender, normal inspection, no pedal edema, no calf tenderness, normal capillary refill Back: normal inspection, no CVA tenderness Neurologic/Psychiatric: no motor/sensory deficits, alert, normal mood/affect Skin: normal color, warm/dry Lymphatic: no adenopathy Progress/Results/Core Measures Results/Orders Lab Results Laboratory Tests Test 01/15/22 09:46 Range/Units White Blood Count 4.8 4.3-11.0 10^3/uL Red Blood Count 3.79 L 3.80-5.11 10^6/uL Hemoglobin 12.2 11.5-16.0 g/dL Hematocrit 36 35-52 % Mean Corpuscular Volume 94 80-99 fL Mean Corpuscular Hemoglobin 32 25-34 pg Mean Corpuscular Hemoglobin Concent 34 32-36 g/dL Red Cell Distribution Width 13.1 10.0-14.5 % Platelet Count 241 130-400 10^3/uL Mean Platelet Volume 9.7 9.0-12.2 fL Immature Granulocyte % (Auto) 1 % Neutrophils (%) (Auto) 68 42-75 % Lymphocytes (%) (Auto) 21 12-44 % Monocytes (%) (Auto) 8 0-12 % Eosinophils (%) (Auto) 2 0-10 % Basophils (%) (Auto) 0 0-10 % Neutrophils # (Auto) 3.3 1.8-7.8 10^3/uL Lymphocytes # (Auto) 1.0 1.0-4.0 10^3/uL Monocytes # (Auto) 0.4 0.0-1.0 10^3/uL Eosinophils # (Auto) 0.1 0.0-0.3 10^3/uL Basophils # (Auto) 0.0 0.0-0.1 10^3/uL Immature Granulocyte # (Auto) 0.0 0.0-0.1 10^3/uL Sodium Level 138 135-145 MMOL/L Potassium Level 3.9 3.6-5.0 MMOL/L Chloride Level 104 98-107 MMOL/L Carbon Dioxide Level 21 21-32 MMOL/L Anion Gap 13 5-14 MMOL/L Blood Urea Nitrogen 9 7-18 MG/DL Creatinine 0.73 0.60-1.30 MG/DL Estimat Glomerular Filtration Rate 109 BUN/Creatinine Ratio 12 Glucose Level 92 70-105 MG/DL Calcium Level 9.3 8.5-10.1 MG/DL Corrected Calcium 9.1 8.5-10.1 MG/DL Total Bilirubin 0.4 0.1-1.0 MG/DL Aspartate Amino Transf (AST/SGOT) 40 H 5-34 U/L Alanine Aminotransferase (ALT/SGPT) 48 0-55 U/L Alkaline Phosphatase 68 40-136 U/L Total Protein 9.4 H 6.4-8.2 GM/DL Albumin 4.3 3.2-4.5 GM/DL Lipase 13 8-78 U/L Serum Test, Qualitative NEGATIVE NEGATIVE My Orders Orders - ISELA BOWDEN MD Comprehensive Metabolic Panel (01/15/22 09:48) Lipase (01/15/22 09:48) Hcg,Qualitative Serum (01/15/22 09:48) Cbc With Automated Diff (01/15/22 09:48) Acetaminophen Tablet (Tylenol Tablet) (01/15/22 10:00) Lidocaine 2% Viscous 15 Ml (Xylocaine Vi (01/15/22 10:00) Famotidine Tablet (Pepcid Tablet) (01/15/22 09:48) Antacid Suspension (Mylanta Suspension (01/15/22 10:00) Medications Given in ED Current Medications Medications Dose Ordered Sig/Kelly Route Start Time Stop Time Status Last Admin Dose Admin Acetaminophen 1,000 mg ONCE ONCE PO 01/15/22 10:00 01/15/22 10:01 DC 01/15/22 10:13 1,000 MG Al Hydrox/Mg Hydrox/Simethicone 30 ml ONCE ONCE PO 01/15/22 10:00 01/15/22 10:01 DC 01/15/22 10:14 30 ML Lidocaine HCl 15 ml ONCE ONCE PO 01/15/22 10:00 01/15/22 10:01 DC 01/15/22 10:14 15 ML Vital Signs/I&O 01/15/22 01/15/22 09:36 10:56 Temp 36.2 36.2 Pulse 68 70 Resp 18 18 B/P (MAP) 128/76 (93) 112/80 Pulse Ox 98 98 O2 Delivery Room Air Room Air Blood Pressure Mean: 93 Progress Progress Note : Progress Note 36-year-old female with above history coming in due to epigastric burning pain. ABCs were intact and vitals were stable on presentation. Physical exam with mild epigastric tenderness but no signs of peritonitis. She was given a GI cocktail with full resolution of her symptoms. Basic labs including LFTs unremarkable. I believe the patient is stable for discharge with outpatient follow-up. She was sent home with strict return precautions Departure Impression Primary Impression: Epigastric pain Disposition: HOME, SELF-CARE Condition: Improved Departure-Patient Inst. Decision time for Depature: 10:49 Referrals: KAMILA HICKS MD (PCP/Family) Primary Care Physician Patient Instructions: Gastritis ED Add. Discharge Instructions: The medicine we gave you help with pain coming from the esophagus and stomach. It is likely this is where your pain is coming from. We can start you on an antacid for the next month. He can also buy cskr-tco-scgrkvq Maalox max to help with the pain when you are having it acutely. Follow-up with your regular doctor if things are not improving. Scripts Pantoprazole Sodium (Pantoprazole Sodium) 20 Mg Tablet. 20 MG PO DAILY for 30 Days, #30 TAB Prov: ISELA BOWDEN MD 01/15/22 Work/School Note: Work Release Form Date Seen in the Emergency Department: Jan 15, 2022 Return to Work: Jan 16, 2022 Restrictions: No Restrictions ISELA BOWDEN MD Jan 15, 2022 10:06
[2022-01-15 10:08] LABS: CREATININE SERUM 0.73 MG/DL (0.60-1.30)
[2022-01-15] MEDS ORDERED: PANT20TA18 PO (10:50)
[2022-01-15 10:56] VITALS: BP 112/80
== END 2022-01-15 10:57 | disposition home or self-care (01) ==
LOC: EDUNIT# 09:25 → ER 09:26
DX: R10.13 Epigastric pain (principal); Z87.891 Personal history of nicotine dependence; Z85.41 Personal history of malignant neoplasm of cervix uteri; Z32.02 Encounter for pregnancy test, result negative
CPT/HCPCS: 36415; 80053; 83690; 84703; 85025

== ENCOUNTER 2022-09-10 08:29 | Outpatient (RCR) | payer OTHER ==
[~2022-09-10 08:29] MED LIST changes: +PANT20TA18 PO
== END 2022-09-26 | disposition home or self-care (01) ==
PROVIDERS: ATTEND Registered Nurse
DX: R29.898 Other symptoms and signs involving the musculoskeletal system (principal)

== ENCOUNTER → 2022-10-27 | Outpatient (RCR) | payer OTHER | END | disposition home or self-care (01) | PROVIDERS: ATTEND Registered Nurse | DX: R29.898 Other symptoms and signs involving the musculoskeletal system (principal); M79.606 Pain in leg, unspecified ==

== ENCOUNTER 2022-11-13 09:49 | Outpatient (RCR) | payer OTHER ==
[2022-11-23] MEDS ORDERED: BUSP10TA95 PO (11:33)
[2022-11-23] MEDS ORDERED: LEVO75TA97 PO (11:33)
[2022-11-23] MEDS ORDERED: ERGO50CA PO (11:33)
== END 2022-11-24 | disposition home or self-care (01) ==
PROVIDERS: ATTEND Registered Nurse
DX: M79.606 Pain in leg, unspecified (principal); R53.1 Weakness

== ENCOUNTER 2022-11-23 10:46 | Day surgery (SDC) | payer OTHER ==
[~2022-11-23] VITALS: Ht 72.6 cm; Wt 70.0 kg
[2022-11-23] MEDS ORDERED: LACTATED RINGERS 1,000 ML IV STA (11:00)
--- NOTE | 2022-11-23 11:11 | Progress Note-Pre Operative ---
Pre-Operative Progress Note Date of Available H&P: Nov 12, 2022 Date H&P Reviewed: Nov 23, 2022 Time H&P Reviewed: 11:09 History & Physical: H&P Reviewed, Patient Examed, No changes noted Pre-Operative Diagnosis: rectal bleed, hx of Cervical CA HYACINTH ARROYO DO Nov 23, 2022 11:11
[2022-11-23 11:15] VITALS: BP 120/83
[2022-11-23] MEDS ORDERED: LEVO75TA97 PO (11:33)
[2022-11-23] MEDS ORDERED: BUSP10TA95 PO (11:33)
[2022-11-23] MEDS ORDERED: ERGO50CA PO (11:33)
[2022-11-23] MEDS ORDERED: MIDAZOLAM 2 MG/2 ML (VERSED) VIAL ONE (11:53)
[2022-11-23] MEDS ORDERED: PROPOFOL INJECTION 50 ML IV ONE (11:53)
[2022-11-23 12:20] VITALS: BP 109/64
--- NOTE | 2022-11-23 12:22 | Progress Note-Post Operative ---
Post-Operative Progess Note Surgeon (s)/Corporate Travel Manager (s) Surgeon HYACINTH ARROYO DO Corporate Travel Manager: Janie Varela, MSIII Pre-Operative Diagnosis rectal bleed, hx of Cervical CA Post-Operative Diagnosis Proctitis Int hemorrhoids Procedure & Operative Findings Date of Procedure 11/23/22 Procedure Performed/Findings Colonoscopy with cold bx PROCEDURE NOTE: After informed consent was obtained, the patient was brought to the endoscopy suite, placed in bed in left lateral decubitus position. She was administered IV sedation by the DIRECTOR OF PRIMARY CARE who then monitored her vitals the entire time, heart rate, blood pressure and pulse ox and the scope was inserted, pushed all the way to about 130 cm and pushed into the cecum, took a picture of appendiceal orifice and noted the ileocecal valve. Then slowly withdrew the scope insufflating to look circumferentially at the melton starting in the cecum, up the ascending colon to the hepatic flexure, then down the transverse colon, splenic flexure, into the descending colon down into the sigmoid and then into the rectum where I found a lot of inflammation. I took pictures and elected to do cold biopsies here. Then into the rectal vault, which did not look as bad and took a picture of the internal hemorrhoids as I pulled the scope out. The patient tolerated the procedure. She was recovered in endoscopy suite. Recommended for repeat colonoscopy in 10 years. Anesthesia Type IV sedation by DIRECTOR OF PRIMARY CARE Estimated Blood Loss Estimated blood loss (mL): scant Specimens/Packing Specimens Removed rectal bx x 2 HYACINTH ARROYO DO Nov 23, 2022 12:22
--- NOTE | 2022-11-23 12:23 | Endoscopy Discharge Instruct ---
Endo Procedure/Findings Findings 1.: Colitis 2.: Internal Hemorrhoids Discharge Instructions - Activity: You might feel a little sleepy until tomorrow. This is due to the medicine you received to relax you. Until tomorrow, you should: NOT drive a car, operate machinery or power tools. NOT drink any alcoholic beverages. NOT make any important decisions or sign importortant papers. Do not return to work until tomorrow, unless otherwise instructed. Resume previous activities tomorrow. Diet: Start by taking liquids. If you tolerate liquids, advance to solid food. 1.: Colonoscopy in 1 year Notify Physician - If you experience excessive bleeding, unusual abdominal pain, fever, or chest pain, contact your doctor immediately. HYACINTH ARROYO DO Nov 23, 2022 12:22
[2022-11-23 12:25] VITALS: BP 108/68
--- NOTE | 2022-11-23 12:25 | Anesthesia-General Post-Op ---
MAC Patient Condition Mental Status/LOC: Same as Preop Cardiovascular: Satisfactory Nausea/Vomiting: Absent Respiratory: Satisfactory Pain: Controlled Complications: Absent Post Op Complications Complications None Follow Up Care/Instructions Patient Instructions None needed. Anesthesiology Discharge Order Discharge Order Patient is doing well, no complaints, stable vital signs, no apparent adverse anesthesia problems. No complications reported per nursing. MATTY SEAMAN CRNA Nov 23, 2022 12:25
[2022-11-23 12:30] VITALS: BP 112/68
[2022-11-23 12:52] VITALS: BP 112/68
== END 2022-11-23 12:58 | disposition home or self-care (01) ==
LOC: ENDO 10:46
PROVIDERS: ATTEND Surgery
DX: K62.89 Other specified diseases of anus and rectum (principal); K64.8 Other hemorrhoids; K52.831 Collagenous colitis; Z85.41 Personal history of malignant neoplasm of cervix uteri; Z87.891 Personal history of nicotine dependence; Z28.311 Partially vaccinated for COVID-19

== ENCOUNTER 2023-03-13 05:28 | Emergency (ER) | payer OTHER ==
[~2023-03-13] VITALS: Ht 152.4 cm; Wt 72.6 kg
[~2023-03-13 05:28] MED LIST changes: +BUSP10TA95 PO; +ERGO50CA PO; +LEVO75TA97 PO
--- NOTE | 2023-03-13 06:07 | ED General ---
General Chief Complaint: Dental Problems/Pain Stated Complaint: RT SIDE TOOTH PAIN,SWOLLEN Nursing Triage Note: TO ED VIA POV AND AMBULATORY TO ROOM 5 WITH C/O RIGHT SIDE OF FACE HURTING STARTING APPROX 1 WEEK AGO. PT STATES LAST WEDNESDAY SHE WENT TO [facility] DENTAL TRIAGE AND WAS GIVEN RX FOR 3 TABS AZITHROMYCIN. PT REPORTS RIGHT SIDE OF FACE HAS GOTTEN WORSE WITH INCREASED SWELLING. Source of Information: Patient Exam Limitations: No Limitations History of Present Illness Date Seen by Provider: Mar 13, 2023 Time Seen by Provider: 06:02 Initial Comments This 37-year-old young woman presents to the emergency room with marked swelling of the face associated with a broken tooth and presumed dental abscess. She has experienced symptoms for about 1 week and woke this morning with severe swelling. She presented to the [facility] dental clinic and was prescribed azithromycin. She has taken 2 doses of 500 mg each. She was prescribed a 3-day course. She denies any fever. However, she is having difficulty swallowing and talking. She has a broken posterior molar on the right jaw where the infection presumably started. She has not taken anything for pain this morning. Allergies and Home Medications Allergies Coded Allergies: codeine (Verified Allergy, Unknown, 03/19/06) Patient Home Medication List Home Medication List Reviewed: Yes Buspirone HCl (Buspirone HCl) 10 Mg Tablet, 10 MG PO BID, (Reported) Entered as Reported by: DAIN PERALTA on 11/23/22 113 Ergocalciferol (Vitamin D2) (Vitamin D2) 50 Mcg (2000 Unit) Capsule, 50 MCG PO DAILY, (Reported) Entered as Reported by: DAIN PERALTA on 11/23/22 1133 Levothyroxine Sodium (Euthyrox) 75 Mcg Tablet, 75 MCG PO DAILY, (Reported) Entered as Reported by: DAIN PERALTA on 11/23/22 1133 Review of Systems Review of Systems Constitutional: no symptoms reported EENTM: see HPI Respiratory: no symptoms reported Cardiovascular: no symptoms reported Gastrointestinal: no symptoms reported Genitourinary: no symptoms reported : No Musculoskeletal: no symptoms reported Skin: no symptoms reported Psychiatric/Neurological: No Symptoms Reported Hematologic/Lymphatic: No Symptoms Reported Immunological/Allergic: no symptoms reported Past Khyqoon-Gczefh-Gzujqz Hx Patient Social History Tobacco Use?: No Substance use?: No Alcohol Use?: No Seasonal Allergies Seasonal Allergies: No Past Medical History Surgery/Hospitalization HX: pt reports hx of cervical cancer WITH RADIATION and several auto immune disorders Surgeries: Yes ( X1, brachytherapy for cervical cancer) Section, Tubal Ligation Respiratory: No Cardiac: No Neurological: No Reproductive 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 Sexually Transmitted Disease: Yes (chlamydia, tx 02/19) Genitourinary: Yes Kidney Stones Gastrointestinal: No Musculoskeletal: No Endocrine: Yes Hypothyroidsim, Lupus HEENT: Yes (Dental abscess) Cancer: Yes Cervical Did You Recieve Any Treatments: Yes What Type of Treatment Did You: Chemotherapy, Radiation, Other (Brachytherapy) Psychosocial: Yes Depression Integumentary: No Blood Disorders: No Physical Exam Vital Signs Vital Signs - First Documented 03/13/23 05:39 Temp 37.1 Pulse 67 Resp 16 B/P (MAP) 139/93 (108) Pulse Ox 97 O2 Delivery Room Air Capillary Refill : Less Than 3 Seconds Height, Weight, BMI Height: 5'1.00" Weight: 139lbs. 0oz. 63.282083yc; 31.00 BMI Method:Stated General Appearance: No Apparent Distress, WD/WN HEENT: PERRL/EOMI, TMs Normal, Other (Fractured or eroded right lower posterior molar. Markedly swollen right cheek. Muffled speech. No apparent edema of the uvula or posterior pharynx) Neck: Non Tender; No Lymphadenopathy (L), No Lymphadenopathy (R); Other (Swelling extends to the inframandibular region of the right neck) Respiratory: Lungs Clear, Normal Breath Sounds, No Accessory Muscle Use Cardiovascular: Regular Rate, Rhythm, No Edema, No Murmur Extremity: Normal Inspection Neurologic/Psychiatric: Alert, Oriented x3, No Motor/Sensory Deficits Skin: Normal Color, Warm/Dry, Rash (Macular rash scattered throughout the extremities) Progress/Results/Core Measures Suspected Sepsis SIRS Temperature: Pulse: 67 Respiratory Rate: 16 Laboratory Tests 03/13/23 06:22: White Blood Count 4.7 Blood Pressure 139 /93 Mean: 108 Laboratory Tests 03/13/23 06:22: Creatinine 0.74, Platelet Count 214 Results/Orders Lab Results Laboratory Tests Test 03/13/23 06:22 Range/Units White Blood Count 4.7 4.3-11.0 10^3/uL Red Blood Count 3.34 L 3.80-5.11 10^6/uL Hemoglobin 11.1 L 11.5-16.0 g/dL Hematocrit 32 L 35-52 % Mean Corpuscular Volume 96 80-99 fL Mean Corpuscular Hemoglobin 33 25-34 pg Mean Corpuscular Hemoglobin Concent 35 32-36 g/dL Red Cell Distribution Width 14.5 10.0-14.5 % Platelet Count 214 130-400 10^3/uL Mean Platelet Volume 10.2 9.0-12.2 fL Immature Granulocyte % (Auto) 0 % Neutrophils (%) (Auto) 73 42-75 % Lymphocytes (%) (Auto) 16 12-44 % Monocytes (%) (Auto) 9 0-12 % Eosinophils (%) (Auto) 2 0-10 % Basophils (%) (Auto) 0 0-10 % Neutrophils # (Auto) 3.4 1.8-7.8 10^3/uL Lymphocytes # (Auto) 0.8 L 1.0-4.0 10^3/uL Monocytes # (Auto) 0.4 0.0-1.0 10^3/uL Eosinophils # (Auto) 0.1 0.0-0.3 10^3/uL Basophils # (Auto) 0.0 0.0-0.1 10^3/uL Immature Granulocyte # (Auto) 0.0 0.0-0.1 10^3/uL Sodium Level 137 135-145 MMOL/L Potassium Level 3.6 3.6-5.0 MMOL/L Chloride Level 106 98-107 MMOL/L Carbon Dioxide Level 23 21-32 MMOL/L Anion Gap 8 5-14 MMOL/L Blood Urea Nitrogen 16 7-18 MG/DL Creatinine 0.74 0.60-1.30 MG/DL Estimat Glomerular Filtration Rate 106 BUN/Creatinine Ratio 22 Glucose Level 97 70-105 MG/DL Calcium Level 9.2 8.5-10.1 MG/DL C-Reactive Protein High Sensitivity 2.02 H 0.00-0.50 MG/DL Serum Test, Qualitative NEGATIVE NEGATIVE My Orders Orders - MAJO DUBOIS MD Basic Metabolic Panel (03/13/23 06:16) Cbc With Automated Diff (03/13/23 06:16) Hs C Reactive Protein (03/13/23 06:16) Hcg,Qualitative Serum (03/13/23 06:16) Clindamycin 900 Mg/50 Ml Ivpb (Cleocin P (03/13/23 06:30) Ketorolac Injection (Toradol Injection) (03/13/23 06:30) Ct Neck (Soft Tissue) W (03/13/23 06:16) Iohexol Injection (Omnipaque 350 Mg/Ml 1 (03/13/23 07:15) Received Contrast (Hold Metformin- Contr (03/13/23 07:15) Sodium Chloride Flush (Catheter Flush Sy (03/13/23 07:15) Ns (Ivpb) (Sodium Chloride 0.9% Ivpb Bag (03/13/23 07:15) Medications Given in ED Current Medications Medications Dose Ordered Sig/Kelly Route Start Time Stop Time Status Last Admin Dose Admin Clindamycin Phosphate/Dextrose 50 ml @ 100 mls/hr ONCE ONCE IV 03/13/23 06:30 03/13/23 06:59 DC 03/13/23 06:33 100 MLS/HR Iohexol 100 ml ONCE ONCE IV 03/13/23 07:15 03/13/23 07:16 DC 03/13/23 07:19 75 ML Ketorolac Tromethamine 30 mg ONCE ONCE IVP 03/13/23 06:30 03/13/23 06:31 DC 03/13/23 06:32 30 MG Sodium Chloride 10 ml NEEDED PRN IV 03/13/23 07:15 03/13/23 07:19 10 ML Sodium Chloride 100 ml ONCE ONCE IV 03/13/23 07:15 03/13/23 07:16 DC 03/13/23 07:19 80 ML Vital Signs/I&O 03/13/23 05:39 Temp 37.1 Pulse 67 Resp 16 B/P (MAP) 139/93 (108) Pulse Ox 97 O2 Delivery Room Air Capillary Refill : Less Than 3 Seconds Blood Pressure Mean: 108 Progress Note #1: Time: 06:32 Progress Note Patient was interviewed and examined. Labs and CT soft tissues neck are being pursued because of patient's description of difficulty speaking and swallowing. In the meantime, a dose of IV clindamycin is being administered. Toradol is being administered for pain. Progress Note #2: Time: 07:38 Progress Note Labs were reviewed in their entirety including CBC, BMP, CRP, and serum test. They were grossly unremarkable by my interpretation except for slight elevation in CRP. CT soft tissues neck with contrast was viewed by me. By my interpretation there was hyperemia on the right side of the face associated with periodontal disease. There was tissue stranding suggestive of cellulitis and dental infection. No discrete abscess formation was identified. Radiologist report was also reviewed and seem to correlate with my interpretation. Patient has been prescribed clindamycin for further treatment. See discharge instructions for discharge instructions. Diagnostic Imaging Diagonstic Imaging: CT Plain Films/CT/US/NM/MRI: other (Soft tissues neck with contrast) Comments NAME: NICKOLAS LEDESMA [facility] REC#: [id number] PT STATUS: REG ER : 1985 PHYSICIAN: MAJO DUBOIS MD ADMIT DATE: 03/13/23/ER Draft Date of Exam:03/13/23 CT NECK (SOFT TISSUE) W PROCEDURE: CT neck soft tissue with contrast. TECHNIQUE: Multiple contiguous axial images were obtained through the neck after the administration of contrast. Auto Exposure Controls were utilized during the CT exam to meet ALARA standards for radiation dose reduction. Date: March 13, 2023. Indication: 37-year-old female, right-sided face pain for one week. Swelling of the right side of face as well. Comparison: None. Findings: The bilateral parotid and submandibular glands are unremarkable in appearance. Unremarkable appearance of the thyroid. There is no identified mucosal or submucosal mass along the airway. There is no narrowing of the airway. There is no identified abnormally enlarged cervical lymph node which specifically meets CT size criteria for adenopathy. There is no identified neck mass. The orbits are unremarkable in appearance. There is prominent inflammatory stranding along the right-sided of the mandible. There is no identified focal fluid collection or abscess. There are periapical lucencies associated with the right mandibular molars. There is no identified aggressive bone destruction or periosteal reaction. The visualized portions of the paranasal sinuses, mastoid air cells, and middle ears are well aerated. The visualized portions of the lungs are clear. Impression: 1. Prominent inflammatory stranding adjacent to the right mandible without identified focal fluid collection or abscess. This may be infectious or inflammatory in etiology and may relate to dental disease with periapical lucencies adjacent to the right mandibular molars. 2. No CT evidence of aggressive osteomyelitis. 3. Additional CT neck evaluation is unremarkable. Dictated on workstation # [id number] Dict: 03/13/2314 Trans: 03/13/23 0725 [facility] [id number] Interpreted by: JAYJAY GARZA MD Departure Impression Primary Impression: Dental abscess Additional Impression: Facial cellulitis Disposition: HOME, SELF-CARE Condition: Stable Departure-Patient Inst. Referrals: ADRIANA PINEDA DO (PCP/Family) Primary Care Physician Add. Discharge Instructions: Complete the azithromycin as previously prescribed. Add clindamycin as prescribed from the emergency room. Follow-up with the [facility] dental clinic first thing on Wednesday morning. Please call and inform them you had significant worsening of your infection that required an emergency room visit. Ultimately, you likely will need dental extraction to resolve this problem. You may take ibuprofen up to 600 mg every 6 hours as needed and/or Tylenol (acetaminophen) up to 1000 mg every 6 hours as needed for pain. Keeping your head elevated until the swelling is gone should reduce the swelling and discomfort. Return to the emergency room if you have worsening symptoms, especially if you have worsening problems with swallowing, difficulty breathing, or develop fevers over 100.3 degrees. All discharge instructions reviewed with patient and/or family. Voiced understanding. Scripts Clindamycin HCl (Clindamycin HCl) 300 Mg Capsule 300 MG PO QID, #40 CAP Prov: MAJO DUBOIS MD 03/13/23 Copy Copies To 1: [facility]/MAJO CISNEROS MD Mar 13, 2023 06:07
[2023-03-13] MEDS ORDERED: KETOROLAC 30 MG/ML VIAL IVP ONE (06:30)
[2023-03-13] MEDS ORDERED: CLINDAMYCIN 900 MG/50 ML IVPB 50 ML IV ONE (06:30)
[2023-03-13 06:37] LABS: BASOPHILS % (AUTO) 0 % (0-10); EOSINOPHILS # (AUTO) 0.1 10^3/uL (0.0-0.3); EOSINOPHILS % (AUTO) 2 % (0-10); HEMATOCRIT 32 % (35-52); HEMOGLOBIN 11.1 g/dL (11.5-16.0); LYMPHOCYTES # (AUTO) 0.8 10^3/uL (1.0-4.0); LYMPHOCYTES % (AUTO) 16 % (12-44); MEAN CORPUSCULAR HEMOGLOBIN 33 pg (25-34); MEAN CORPUSCULAR HGB CONC 35 g/dL (32-36); MEAN CORPUSCULAR VOLUME 96 fL (80-99); MEAN PLATELET VOLUME 10.2 fL (9.0-12.2); MONOCYTES # (AUTO) 0.4 10^3/uL (0.0-1.0); MONOCYTES % (AUTO) 9 % (0-12); NEUTROPHILS # (AUTO) 3.4 10^3/uL (1.8-7.8); NEUTROPHILS % (AUTO) 73 % (42-75); PLATELET COUNT 214 10^3/uL (130-400); WHITE BLOOD COUNT 4.7 10^3/uL (4.3-11.0)
[2023-03-13 06:40] LABS: POTASSIUM 3.6 MMOL/L (3.6-5.0)
[2023-03-13 06:41] LABS: CALCIUM 9.2 MG/DL (8.5-10.1)
[2023-03-13 06:46] LABS: CREATININE SERUM 0.74 MG/DL (0.60-1.30)
[2023-03-13] MEDS ORDERED: NS 100 ML (IVPB) BAG IV ONE (07:15)
[2023-03-13] MEDS ORDERED: IOHEXOL 350 MG/ML 100 ML (OMNIPAQUE 350) VIAL IV ONE (07:15)
[2023-03-13] MEDS ORDERED: CATHETER FLUSH 10 ML SYR IV PRN (07:15)
[2023-03-13] MEDS ORDERED: HOLD METFORMIN - RECEIVED CONTRAST 20 ML VIAL IV SCH (07:15)
--- NOTE | 2023-03-13 07:25 | Diagnostic Imaging Report ---
PROCEDURE: CT neck soft tissue with contrast. TECHNIQUE: Multiple contiguous axial images were obtained through the neck after the administration of contrast. Auto Exposure Controls were utilized during the CT exam to meet ALARA standards for radiation dose reduction. Date: March 13, 2023. Indication: 37-year-old female, right-sided face pain for one week. Swelling of the right side of face as well. Comparison: None. Findings: The bilateral parotid and submandibular glands are unremarkable in appearance. Unremarkable appearance of the thyroid. There is no identified mucosal or submucosal mass along the airway. There is no narrowing of the airway. There is no identified abnormally enlarged cervical lymph node which specifically meets CT size criteria for adenopathy. There is no identified neck mass. The orbits are unremarkable in appearance. There is prominent inflammatory stranding along the right-sided of the mandible. There is no identified focal fluid collection or abscess. There are periapical lucencies associated with the right mandibular molars. There is no identified aggressive bone destruction or periosteal reaction. The visualized portions of the paranasal sinuses, mastoid air cells, and middle ears are well aerated. The visualized portions of the lungs are clear. Impression: 1. Prominent inflammatory stranding adjacent to the right mandible without identified focal fluid collection or abscess. This may be infectious or inflammatory in etiology and may relate to dental disease with periapical lucencies adjacent to the right mandibular molars. 2. No CT evidence of aggressive osteomyelitis. 3. Additional CT neck evaluation is unremarkable. Dictated by: Dictated on workstation # [id number]
[2023-03-13] MEDS ORDERED: CLIN-144 PO (07:40)
[2023-03-13 08:00] VITALS: BP 121/74
== END 2023-03-13 08:00 | disposition home or self-care (01) ==
LOC: EDUNIT# 05:28 → ER 05:31
DX: K04.7 Periapical abscess without sinus (principal); L03.211 Cellulitis of face; C76.0 Malignant neoplasm of head, face and neck; Z28.310 Unvaccinated for COVID-19
CPT/HCPCS: 36415; 70491; 80048; 84703; 85025; 86141